=== PATIENT | male | born 1955 | race Hispanic/Latino ===

== ENCOUNTER 2017-04-26 13:26 | Emergency (ER) | payer OTHER | END 2017-04-26 14:09 | disposition home or self-care (01) | LOC: ERS 13:26 | DX: B37.42 Candidal balanitis (principal) | CPT/HCPCS: 99282 ==

== ENCOUNTER 2017-07-08 07:10 | Outpatient (CLI) | payer OTHER | END 2017-07-08 07:11 | disposition home or self-care (01) | LOC: BICULT 07:10 | PROVIDERS: ATTEND Urology | DX: N20.0 Calculus of kidney (principal); N28.1 Cyst of kidney, acquired; R31.29 Other microscopic hematuria; Z51.89 Encounter for other specified aftercare; N40.0 Benign prostatic hyperplasia without lower urinary tract symptoms | CPT/HCPCS: 36415; 74000; 76770; 80048; 81001; 87086; 88112; G0103 ==

== ENCOUNTER 2017-07-19 09:59 | Emergency (ER) | payer OTHER ==
--- NOTE | 2017-07-19 11:19 | RAD ---
PORTABLE CHEST 1 VIEW: Date: 07/19/17 Time: 1057 hours HISTORY: Cough. FINDINGS: The heart size is normal. The aorta is tortuous. The lungs are well expanded without focal areas of c onsolidation, pneumothorax, or pleural effusions. There is evidence of old granulomatous disease. IMPRESSION: No radiographic evidence of acute cardiopulmonary process. POS: C
[2017-07-19] MEDS ORDERED: cefTRIAXone\\ROCEPHIN 500 MG VIAL ONE (11:31)
[2017-07-19] MEDS ORDERED: Dexamethasone 10 MG/ML VIAL ONE (11:31)
[2017-07-19] MEDS ORDERED: Lidocaine 1% PF 5 ML VIAL ONE (11:31)
== END 2017-07-19 11:50 | disposition home or self-care (01) ==
LOC: ERS 09:59
DX: J20.9 Acute bronchitis, unspecified (principal); J11.1 Influenza due to unidentified influenza virus with other respiratory manifestations
CPT/HCPCS: 71010; 96372; J0696; J1100; J2001

== ENCOUNTER 2017-07-27 10:32 | Outpatient (CLI) | payer OTHER ==
[2017-07-27 11:11] LABS: Anion Gap 11 mmol/L (10-20); BUN (Urea Nitrogen) 11 mg/dL (8.4-25.7); Calc. Creatinine Clearance 0 mL/min (70-130); Calcium 9.3 mg/dL (7.8-10.44); Carbon Dioxide 26 mmol/L (23-31); Chloride 107 mmol/L (98-107); Estimated GFR-MDRD 90; Glucose 118 mg/dL (80-115); Potassium 4.2 mmol/L (3.5-5.1); Sodium 140 mmol/L (136-145)
[2017-07-27] MEDS ORDERED: Iopamidol 370 76% 100 ML VIAL ONE (11:54)
--- NOTE | 2017-07-27 14:21 | CT ---
CT ABDOMEN AND PELVIS WITH AND WITHOUT CONTRAST: HISTORY: N40.0 (BPH), R31.2 (microhematuria), N28.0, and G89.29. FINDINGS: There are calcified granuloma in the left lung base. Mild atelectatic changes in the lung bases. No pericardial effusion. On the noncontrast evaluation, there is a punctate calculus at the superior pole right kidney. No ob structive uropathy. No calculus is in the ureters. The prostate is markedly enlarged. There is a cyst within the left kidney, similar. Ysl-[id number]-dt-characterize hypodensities of both kid neys are present and similar. On the delayed phase of contrast, there are no filling defects within the renal calyces or ureters. There is indentation of the posterior wall of the urinary bladder, due to the prostate. There is moderate diverticular disease of the sigmoid colon without active inflammation. No retroper itoneal adenopathy. Mild facet arthropathy lower lumbar spine. IMPRESSION: 1. Punctate, nonobstructive right superior renal calculus. 2. No abnormal filling defect within the renal collecting systems, the ureters, or the urinary bladd er. 3. Marked prostate hyperplasia creating an impression on the posterior wall of the urinary bladder, which could be the source of the patient's microhematuria. 4. No abnormal renal enhancing mass. POS: VINH
== END 2017-07-27 10:33 | disposition home or self-care (01) ==
LOC: CT 10:32
PROVIDERS: ATTEND Urology
DX: N40.0 Benign prostatic hyperplasia without lower urinary tract symptoms (principal); R31.29 Other microscopic hematuria; N20.0 Calculus of kidney; G89.29 Other chronic pain
CPT/HCPCS: 74178; 80048

== ENCOUNTER 2017-10-10 10:31 | Emergency (ER) | payer OTHER ==
--- NOTE | 2017-10-10 11:38 | RAD ---
THREE VIEW SOF THE RIGHT ANKLE: COMPARISON: None. HISTORY: Right ankle pain. FINDINGS: Three views of the right ankle show no evidence of acute fracture or dislocation. No degenerative ch anges are seen in the ankle. There are mild degenerative changes in the mid foot. IMPRESSION: No evidence of acute osseous abnormality. POS: VINH
== END 2017-10-10 12:55 | disposition home or self-care (01) ==
LOC: ERS 10:31
DX: M72.2 Plantar fascial fibromatosis (principal); N40.0 Benign prostatic hyperplasia without lower urinary tract symptoms; Z79.899 Other long term (current) drug therapy

== ENCOUNTER 2017-10-29 13:06 | Emergency (ER) | payer OTHER ==
[2017-10-29 13:29] LABS: Bilirubin Negative (Negative); Blood, Urine Large (Negative); Clarity TURBID (Clear); Glucose, Urine (Dipstick) Negative (Negative); Leukocyte Large (Negative); Nitrite Positive (Negative); Protein, Urine (Dipstick) 100 mg/dL (Neg-Trace); Specific Gravity, Urine 1.019 (1.002-1.036); Urobilinogen 0.2 mg/dL (0.2-1.0)
[2017-10-29 13:30] LABS: Bacteria/HPF 3+ HPF (None Seen); Hyaline Casts/LPF 0-3 HYALINE CAST LPF (0-3 Hyaline); Pathc Cast-AUWi Flag 0.39 (0-2.49); RBC/HPF GREATER THAN 50-TNTC HPF (0-3); Squamous Epithelial 0-3 HPF (0-3)
== END 2017-10-29 13:40 | disposition home or self-care (01) ==
LOC: ERS 13:06
DX: N40.1 Benign prostatic hyperplasia with lower urinary tract symptoms; N30.01 Acute cystitis with hematuria; Z79.899 Other long term (current) drug therapy
CPT/HCPCS: 81003; 81015; 87077; 87086; 87186; 99283

== ENCOUNTER 2017-11-07 20:21 | Emergency (ER) | payer OTHER ==
[2017-11-07 21:38] LABS: Bilirubin Small (Negative); Blood, Urine Large (Negative); Clarity CLOUDY (Clear); Glucose, Urine (Dipstick) Negative (Negative); Leukocyte Large (Negative); Nitrite Positive (Negative); Protein, Urine (Dipstick) 30 mg/dL (Neg-Trace); Specific Gravity, Urine 1.021 (1.002-1.036)
[2017-11-07 21:39] LABS: Bacteria/HPF None Seen HPF (None Seen); Hyaline Casts/LPF 0-3 HYALINE CAST LPF (0-3 Hyaline); Pathc Cast-AUWi Flag 0.29 (0-2.49); RBC/HPF GREATER THAN 50-TNTC HPF (0-3); Squamous Epithelial None Seen HPF (0-3)
[2017-11-07 21:41] LABS: Yeast-AUWi Flag 2138.6 (0-25.0)
[2017-11-07 21:44] LABS: Sperm/HPF 1+ HPF (None Seen); Yeast-All Forms None Seen HPF (None Seen)
[2017-11-08] MEDS ORDERED: Ciprofloxacin 500 MG TAB ONE (00:54)
[2017-11-08] MEDS ORDERED: traMADol HCl 50 MG TAB ONE (01:27)
--- NOTE | 2017-11-08 09:07 | CT ---
PRELIMINARY REPORT/[facility]/EMERGENTY AFTER-HOURS PROCEDURE CT Abdomen and Pelvis Without Intravenous Contrast CLINICAL HISTORY: 62 years old, male; Pain; Abdominal pain; Generalized; Patient HX: R/O stone TECHNIQUE: Axial computed tomography images of the abdomen and pelvis without intravenous contrast. Coronal refo rmatted images were created and reviewed. COMPARISON: No relevant prior studies available. FINDINGS: The lung bases are clear. 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 Small adjacent cortical calcification. No definite intrarenal calculus. No hydro nephrosis. No hydroureter or visible ureteral calculus. Left kidney: Probable 17 mm cyst in the upper left kidney No intrarenal calculus, or hydronephrosis. No hydroureter or visible ureteral calculus. No definite gallbladder abnormality by CT. Ultrasound could be more sensitive for detecting gallstone s, if clinically needed. No biliary tree dilation. Unremarkable appearance of the liver, spleen, adrenal glands, and pancreas. No free air, ascites, or bowel distention. No evidence for abdominal aortic aneurysm. No retroperitoneal adenopathy. CT pelvis: Urinary bladder appears essentially unremarkable by CT. The appendix is visualized and appears normal. There are no CT findings to strongly suggest diverticulitis. Prominent prostate enlargement with transverse diameter of 6 cm. Correlation with PSA level may be us eful to help exclude malignancy IMPRESSION: No renal or ureteral calculus. No hydronephrosis or hydroureter. Normal appendix. No diverticulitis. No free air or bowel distention. Other findings discussed above. Thank you for allowing us to participate in the care of your patient. Dictated and Authenticated by: Cameron Munoz MD 11/08/2017 1:07 AM Central Time ([place] & [place]) FINAL REPORT EMERGENCY AFTER HOURS CT ABDOMEN AND PELVIS PERFORMED WITHOUT CONTRAST ENHANCEMENT: Date: 11/07/17 HISTORY: UTI. Abdominal pain and bloating. [place]-tinged urine. FINDINGS: The lung bases show some subsegmental atelectatic change. The liver, spleen, pancreas, and gallbladder regions appear unremarkable given the limitations of a n oncontrast study. Right and left adrenal glands are normal in appearance. Right and left kidneys are normal in size. An approximately 17.0 mm hypodensity involving the left kidney is statistically most likely a cyst. The re is an area of what appears to be some cortical scarring and a calcification which appears to be mo re in the cortex rather than a luis daniel associated with this, although it could represent an area where there is scarring related to deformity to a luis daniel. There is no obstruction of either kidney and there are no ureteral calculi. There is no significant periaortic or mesenteric adenopathy. The appendix is more retrocecal in locat ion and normal in size and appearance. CT of pelvis was performed without contrast enhancement. The prostate is enlarged with prostatic calc ifications. No significant adenopathy or mass. No evidence for diverticulitis. IMPRESSION: 1. Probable left renal cyst measuring 17.0 mm. 2. Cortical scarring associated with a small calcification upper pole of right kidney. No ureteral c alculi. 3. Normal appendix. 4. Enlarged prostate. This report is in agreement with the preliminary report issued by [facility]. POS: NGA
== END 2017-11-08 01:40 | disposition home or self-care (01) ==
LOC: ERS 20:21
DX: N41.9 Inflammatory disease of prostate, unspecified (principal); N40.0 Benign prostatic hyperplasia without lower urinary tract symptoms; Z79.899 Other long term (current) drug therapy
CPT/HCPCS: 74176; 81003; 81015; 87086

== ENCOUNTER 2018-03-14 16:43 | Inpatient (IN) | payer OTHER ==
[~2018-03-14 16:43] MED LIST: Heparin 1,000 UNITS/ML VIAL ONE
[2018-03-14] MEDS ORDERED: Piperacillin/Tazobactam 4.5 GM VIAL ONE (17:13)
[2018-03-14] MEDS ORDERED: MEROPENEM 1 GM/50 ML 1 GM in Premix Bag 1 BAG IVPB SCH (17:15)
[2018-03-14 17:19] LABS: #Eosinphils 0.1 thou/uL (0.0-0.7); #Lymphocytes 1.3 thou/uL (1.20-3.40); #Monocytes 0.8 thou/uL (0.11-0.59); #Neutrophils 6.2 thou/uL (1.40-6.50); %Basophils 0.4 % (0.0-1.0); %Eosinophils 0.8 % (0.0-10.0); %Lymphocytes 15.2 % (21.0-51.0); %Neutrophils 73.6 % (42.0-75.0); Hemoglobin 12.8 g/dL (14.0-18.0); Mean Corpuscular HGB CONC 35.1 g/dL (32.0-36.0); Mean Corpuscular Hemoglobin 34.2 pg (27.0-31.0); Mean Corpuscular Volume 97.5 fL (78.0-98.0); Mean Platelet Volume 7.6 fL (7.4-10.4); Platelet Count 148 thou/uL (130-400); RBC Distribution Width 11.7 % (11.5-14.5); Red Blood Cell (RBC) Count 3.75 mill/uL (4.70-6.10); White Blood Cell (WBC) Count 8.4 thou/uL (4.8-10.8)
[2018-03-14 17:38] LABS: Bilirubin Small (Negative); Blood, Urine Small (Negative); Clarity CLOUDY (Clear); Glucose, Urine (Dipstick) Negative (Negative); Leukocyte Moderate (Negative); Nitrite Negative (Negative); Protein, Urine (Dipstick) 100 mg/dL (Neg-Trace); Specific Gravity, Urine 1.042 (1.002-1.036)
[2018-03-14 17:40] LABS: ALT (SGPT) 16 U/L (8-55); AST (SGOT) 15 U/L (5-34); Albumin 3.7 g/dL (3.4-4.8); Alkaline Phosphatase 66 U/L (40-150); Anion Gap 10 mmol/L (10-20); BUN (Urea Nitrogen) 12 mg/dL (8.4-25.7); Bilirubin, Total 0.8 mg/dL (0.2-1.2); Calc. Creatinine Clearance 0 mL/min (70-130); Calcium 8.5 mg/dL (7.8-10.44); Carbon Dioxide 24 mmol/L (23-31); Chloride 108 mmol/L (98-107); Estimated GFR-MDRD 75; Globulin 2.5 g/dL (2.4-3.5); Glucose 150 mg/dL (80-115); Potassium 3.3 mmol/L (3.5-5.1); Protein, Total 6.2 g/dL (5.8-8.1); Sodium 139 mmol/L (136-145)
[2018-03-14 17:41] LABS: Bacteria/HPF None Seen HPF (None Seen); Hyaline Casts/LPF 4-6 HYALINE CAST LPF (0-3 Hyaline); Pathc Cast-AUWi Flag 1.01 (0-2.49); Squamous Epithelial 0-3 HPF (0-3); Yeast-AUWi Flag 14.8 (0-25.0)
[2018-03-14] MEDS ORDERED: Ibuprofen 800 MG TAB ONE (18:37)
[2018-03-14 18:41] LABS: CK (CPK) 180 U/L (30-200); Lipase 29 U/L (8-78)
[2018-03-14 18:45] LABS: CKMB 1.2 ng/mL (0-6.6); Troponin I Less than 0.010 ng/mL (< 0.028)
[2018-03-14] MEDS ORDERED: Enoxaparin Sodium 40 MG/0.4 ML SYRINGE SC SCH (19:45)
--- NOTE | 2018-03-14 19:47 | PDOC.FPRHP ---
- History of Present Illness Chief Complaint: UTI, failed outpatient History of Present Illness: Mr. Mejia presents to the ED today from clinic after multiple failed antibiotic treatments for UTI. He has been treated 3 times in the past few months without success. For the past 3 days he has had pain with urination, and they past 24 hours has been experiencing fevers/chills. He denies blood with urination, abdominal/back pain, SOB, Chest pain, or N/V/D. ED Course: 2 L bolus, blood cultures, merepenem, zosyn, UA, CMP, lipase - Allergies/Adverse Reactions Allergies Allergy/AdvReac Type Severity Reaction Status Date / Time No Known Allergies Allergy Verified 03/14/18 20:26 - Home Medications Medication Instructions Recorded Confirmed Type Finasteride 5 mg PO DAILY 03/14/18 03/14/18 History Lisinopril 10 mg PO DAILY 03/14/18 03/14/18 History Tamsulosin HCl 0.4 mg PO DAILY 03/14/18 03/14/18 History - History PMHx:BPH, HTN PSHx: none FHx:none Social:no TAD - Review of Systems General: reports: fever/chills. denies: weight/appetite/sleep changes Eyes: denies: eye pain, vision changes ENT: denies: nasal congestion, rhinorrhea Respiratory: denies: cough, congestion, shortness of breath Cardiovascular: denies: chest pain, palpitation Gastrointestinal: denies: nausea, vomiting, diarrhea, abdominal pain Genitourinary: reports: dysuria. denies: incontinence, polyuria, discharge Skin: denies: rashes, lesions Musculoskeletal: denies: pain, tenderness Neurological: reports: other (headache). denies: numbness, syncope - Vital signs BP: [99/55] HR: [56] RR: [26] Tmax: [101.3] Pox: [99]% on [RA] Wt: [99kg] - Physical Exam Constitutional: other (tremulous) HEENT: normocephalic and atraumatic, grossly normal vision, grossly normal hearing Neck: supple, trachea midline Chest: no-tender to palpation Heart: RRR, normal S1/S2, pulses present Lungs: CTAB, no respiratory distress, good air movement, no rales/rhonchi Abdomen: soft, non-tender, bowel sounds present Musculoskeletal: normal structure, ROM grossly normal Neurological: no focal deficit, CN II-XII intact Skin: no rash/lesions, other (cap refill >3 secs) Heme/Lymphatic: no unusual bruising or bleeding, no purpura, no petechia FMR H&P: Results - Labs Result Diagrams: 03/14/18 17:04 03/14/18 17:04 Lab results: WBC 8.4 thou/uL (4.8-10.8) 03/14/18 17:04 Hgb 12.8 g/dL (14.0-18.0) L 03/14/18 17:04 Hct 36.5 % (42.0-52.0) L 03/14/18 17:04 MCV 97.5 fL (78.0-98.0) 03/14/18 17:04 Plt Count 148 thou/uL (130-400) 03/14/18 17:04 Neutrophils % 73.6 % (42.0-75.0) 03/14/18 17:04 Sodium 139 mmol/L (136-145) 03/14/18 17:04 Potassium 3.3 mmol/L (3.5-5.1) L 03/14/18 17:04 Chloride 108 mmol/L (98-107) H 03/14/18 17:04 Carbon Dioxide 24 mmol/L (23-31) 03/14/18 17:04 BUN 12 mg/dL (8.4-25.7) 03/14/18 17:04 Creatinine 1.01 mg/dL (0.6-1.3) 03/14/18 17:04 Glucose 150 mg/dL (80-115) H 03/14/18 17:04 Lactic Acid 1.4 mmol/L (0.5-2.2) 03/14/18 17:04 Calcium 8.5 mg/dL (7.8-10.44) 03/14/18 17:04 Total Bilirubin 0.8 mg/dL (0.2-1.2) 03/14/18 17:04 AST 15 U/L (5-34) 03/14/18 17:04 ALT 16 U/L (8-55) 03/14/18 17:04 Alkaline Phosphatase 66 U/L (40-150) 03/14/18 17:04 Creatine Kinase 180 U/L (30-200) 03/14/18 17:50 CK-MB (CK-2) 1.2 ng/mL (0-6.6) 03/14/18 17:50 B-Natriuretic Peptide 133.4 pg/mL (0-100) H 03/14/18 17:51 Serum Total Protein 6.2 g/dL (5.8-8.1) 03/14/18 17:04 Albumin 3.7 g/dL (3.4-4.8) 03/14/18 17:04 Lipase 29 U/L (8-78) 03/14/18 17:50 Urine Ketones Trace mg/dL (Negative) H 03/14/18 17:27 Urine Blood Small (Negative) H 03/14/18 17:27 Urine Nitrite Negative (Negative) 03/14/18 17:27 Ur Leukocyte Esterase Moderate (Negative) H 03/14/18 17:27 Urine RBC 4-6 HPF (0-3) 03/14/18 17:27 Urine WBC Greater Than 50-TNTC HPF (0-3) H 03/14/18 17:27 Ur Squamous Epith Cells 0-3 HPF (0-3) 03/14/18 17:27 Urine Bacteria None Seen HPF (None Seen) 03/14/18 17:27 FMR H&P: A/P - Problem List (1) Sepsis secondary to UTI Current Visit: Yes Status: Acute Code(s): A41.9 - SEPSIS, UNSPECIFIED ORGANISM; N39.0 - URINARY TRACT INFECTION, SITE NOT SPECIFIED (2) BPH (benign prostatic hyperplasia) Current Visit: Yes Status: Acute Code(s): N40.0 - BENIGN PROSTATIC HYPERPLASIA WITHOUT LOWER URINRY TRACT SYMP (3) HTN (hypertension) Current Visit: Yes Status: Acute Code(s): I10 - ESSENTIAL (PRIMARY) HYPERTENSION - Plan 1. Sepsis secondary to MDR UTI - Additional L fluid bolus, NS 120/hr maintenance - continue IV zosyn/merepenem - Strict IO - monitor in IMCU - repeat CBC, CMP in AM 2. BPH - continue home medications - await recommendations from Dr. Bueno 3. HTN - hold home medications FMR H&P: Upper Level - Pertinent history 62 yo male here for failed outpatient treatment of UTI. Pt has been seen by Dr. Bueno for BPH. Plans were to have some prostate procedure Apr 06. The last couple months he has had 3-4 UTIs all of which improved with outpatient abx. However, the most recent episode started a couple days ago with dysuria. Assoc chills and MAIER today. Denies N/V, penile discharge, CP, back pain. Initial temperature of 101.3. In the ED patient received 1L NS bolus x2 for low BP, meropenem, zosyn, motrin - Pertinent findings GEN: pt appears acutely ill, shaking CARD: RRR PULM: CTAB ABD: BSx4, nontender, abd distended : uncircumcised, foreskin retractable, nonerythematous, nontender; testicles descended b/l and nontender 91/56 HR: 60 Temp: 101.3 RR: 21 O2Sat: 100% on RA UA: ketones: trace blood: small nitrite: negative bilirubin: small LE: moderate WBC: >50-TNTC Squam Epith: 0-3 Bacteria: none seen hyaline casts: 4-6 Lactic acid: 1.4 Lipase: 29 - Plan Date/Time: 03/14/181943 IGagan DO, have evaluated this patient and agree with findings/plan as outlined by rn intern resident. Pertinent changes/additions are listed here. 62 yo male here for: sepsis 2/2 MDR UTI, failed outpatient treatment sepsis by fever and mild tachypnea; BP has been acceptable according to recorded measurements zosyn and meropenem started in the ER, will plan to continue blood and urine Cx Dr. Bueno is aware and has seen patient Strict I/Os s/p 1L NS bolus x 2; will continue with maintenance fluids Headache motrin and tylenol Hypertension will hold lisinopril until BP becomes elevated BPH tamsulosin and finasteride Hypokalemia recheck in AM and replace if indicated
[2018-03-14] MEDS: Acetaminophen 325 MG TAB PO PRN (19:53)
[2018-03-14] MEDS: Sodium Chloride 0.9% 1,000 ML IV SCH (19:55)
[2018-03-14 20:08] VITALS: BMI 41.3
[2018-03-14] MEDS: Docusate 100 MG CAP PO SCH (21:08)
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
[2018-03-15] MEDS ORDERED: Piperacillin/Tazobactam 3.375 GM in Sodium Chloride 0.9% 100 ML IVPB SCH (00:30)
[2018-03-15] MEDS: Sodium Chloride 0.9% 1,000 ML IV SCH ×2 (00:43→02:52)
--- NOTE | 2018-03-15 01:00 | PDOC.EVN ---
Event Note - Event Note Event Note: Patient seen and examined. Case discussed with Dr. Zambrano on 03/14/18. Briefly this is a 62 yo BARCLAY with h/o HTN, BPH and recurrent UTIs oresented from his urologist's office today with c/o dysuria x 4-5 days; (+) fever and chills. Denies any N/V/D or sbdominal pain. Mild back pain mostly when he has the chills. PMH/PSH/Meds/All reviewed and agree with resident's documentation. T100.2 P73 BP 95/46 RR20 O2=99% Exam repeated by me and agree with resident' s findings. Labs: WBC=8.4, H/H=12.8/36.5, Kol=571, Ny=958. K=3.3, BUN/Cr=12/1.01 , Lactic acid=1.4. A/P: 1) Sepsis secondary to UTI- Past cultures with E. coli resistant to multiple drugs. Continue Meropenem and Zosyn started in ER. Urine culture pending. Blood cultures pending. 2) HTN- hold lisinopril for now
[2018-03-15] MEDS: MEROPENEM 1 GM/50 ML 1 GM in Premix Bag 1 BAG IVPB SCH ×3 (02:49→18:13)
[2018-03-15 04:28] LABS: #Eosinphils 0.1 thou/uL (0.0-0.7); #Lymphocytes 1.5 thou/uL (1.20-3.40); #Neutrophils 5.4 thou/uL (1.40-6.50); %Basophils 0.3 % (0.0-1.0); %Eosinophils 1.8 % (0.0-10.0); %Monocytes 12.5 % (0.0-10.0); %Neutrophils 67.4 % (42.0-75.0); Hemoglobin 12.3 g/dL (14.0-18.0); Mean Corpuscular HGB CONC 34.4 g/dL (32.0-36.0); Mean Corpuscular Hemoglobin 34.1 pg (27.0-31.0); Mean Platelet Volume 7.9 fL (7.4-10.4); Platelet Count 135 thou/uL (130-400); RBC Distribution Width 11.6 % (11.5-14.5); Red Blood Cell (RBC) Count 3.62 mill/uL (4.70-6.10)
[2018-03-15 04:43] LABS: ALT (SGPT) 20 U/L (8-55); AST (SGOT) 21 U/L (5-34); Albumin 3.3 g/dL (3.4-4.8); Alkaline Phosphatase 59 U/L (40-150); Anion Gap 9 mmol/L (10-20); BUN (Urea Nitrogen) 10 mg/dL (8.4-25.7); Bilirubin, Total 0.7 mg/dL (0.2-1.2); Calc. Creatinine Clearance 137 mL/min (70-130); Calcium 7.7 mg/dL (7.8-10.44); Carbon Dioxide 21 mmol/L (23-31); Chloride 111 mmol/L (98-107); Estimated GFR-MDRD Greater than 90; Globulin 2.4 g/dL (2.4-3.5); Glucose 114 mg/dL (80-115); Potassium 3.7 mmol/L (3.5-5.1); Protein, Total 5.7 g/dL (5.8-8.1); Sodium 137 mmol/L (136-145)
[2018-03-15] MEDS: Piperacillin/Tazobactam 3.375 GM in Sodium Chloride 0.9% 100 ML IVPB SCH ×3 (05:40→17:05)
[2018-03-15] MEDS: Acetaminophen 325 MG TAB PO PRN ×3 (05:47→17:52)
--- NOTE | 2018-03-15 06:03 | PDOC.FM ---
- Subjective Subjective: Patient HR fell to the 40-50s last night. Dr Zambrano examined patient and he was asymptomatic. He was sleeping at the time and was easily arousable. Patient has no complaints or concerns this morning. He states he is feeling much better and felt a little feverish last night. He said he no longer feels burning with urination. He denies SOB, chest pain, abdominal pain, NVD. - Objective MAR Reviewed: Yes Vital Signs & Weight: Vital Signs (12 hours) Temp Pulse Resp BP Pulse Ox 03/15/18 04:00 98.6 F 47 L 16 103/47 L 100 03/15/18 00:00 98.2 F 55 L 18 93/54 L 100 03/14/18 20:10 100.2 F H 73 20 95/46 L 99 03/14/18 20:00 100.2 F H 73 20 99 03/14/18 19:40 99.0 F 74 20 119/54 L 99 Weight Weight 102.512 kg I&O: 03/13/18 03/14/18 03/15/18 06:59 06:59 06:59 Intake Total 360 Output Total 320 Balance 40 Result Diagrams: 03/15/18 03:51 03/15/18 03:51 <Rosi Keller - Last Filed: 03/15/18 09:38> - Objective Vital Signs & Weight: Vital Signs (12 hours) Temp Pulse Resp BP Pulse Ox 03/15/18 08:00 98.0 F 50 L 17 03/15/18 07:28 98.0 F 50 L 17 98/55 L 100 03/15/18 04:00 98.6 F 47 L 16 103/47 L 100 Weight Weight 102.512 kg I&O: 03/14/18 03/15/18 03/16/18 06:59 06:59 06:59 Intake Total 2640 Output Total 1350 Balance 1290 Result Diagrams: 03/15/18 03:51 03/15/18 03:51 <Abdirashid Tiwari - Last Filed: 03/15/18 12:09> Phys Exam - Physical Examination Constitutional: NAD resting, snoring loudly HEENT: PERRLA, moist MMs, sclera anicteric Neck: no JVD, supple, full ROM Respiratory: no wheezing, no rales, no rhonchi, clear to auscultation bilateral Cardiovascular: RRR, no significant murmur, no rub Gastrointestinal: soft, non-tender, no distention, positive bowel sounds Musculoskeletal: pulses present Neurological: non-focal, moves all 4 limbs Psychiatric: A&O x 3 Skin: no rash, normal turgor <Rosi Keller - Last Filed: 03/15/18 09:38> Dx/Plan (1) Sepsis secondary to UTI Code(s): A41.9 - SEPSIS, UNSPECIFIED ORGANISM; N39.0 - URINARY TRACT INFECTION, SITE NOT SPECIFIED Status: Acute (2) Bradycardia Code(s): R00.1 - BRADYCARDIA, UNSPECIFIED Status: Acute (3) Headache Code(s): R51 - HEADACHE Status: Acute (4) Hypokalemia Code(s): E87.6 - HYPOKALEMIA Status: Acute (5) HTN (hypertension) Code(s): I10 - ESSENTIAL (PRIMARY) HYPERTENSION Status: Acute (6) BPH (benign prostatic hyperplasia) Code(s): N40.0 - BENIGN PROSTATIC HYPERPLASIA WITHOUT LOWER URINRY TRACT SYMP Status: Acute - Plan Plan: This is a 62 yo M here for multi-drug resistant UTI. We will continue to tx with IV antibiotics. Sepsis secondary to MDR UTI - Additional L fluid bolus given, switched to LR 120/hr maintenance - continue IV zosyn/merepenem; blood and urine cx pending - Strict IO: output 320 today - Transfer to medical floor - Will formally consult urology. Dr. Bueno is following. 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 HR 47-74 - Will offer CPAP at night for this issue; recommend outpatient Sleep study for diagnosis BPH - continue home medications - await recommendations from Dr. Bueno HTN - hold home medications due to lower blood pressures Hypokalemia - Resolved. K today 3.7. Will monitor with BMP qD DISPO: likely stay 1-2 days. Will f/u with specialists to coordinate care. CODE: FULL DVT prophylaxis: lovenox Case discussed with Dr. Tiwari <Rosi Keller - Last Filed: 03/15/18 09:38> Attending Addendum - Attending Addendum Date/Time: 03/15/18 1207 I personally evaluated the patient and discussed the management with Dr. Keller. I agree with the History, Examination, Assessment and Plan documented above with any addition or exceptions noted below. Patient doing well this morning. Continues on abx therapy for UTI and likely prostatitis and Urology on board. ID has been consulted for recommendations regarding remote computer terminal operator abx therapy. Currently on Meropenem and Zosyn, should be able to d/c Zosyn as sensitivities show adequate to [place]. Change fluids to LR due to developing hyperchloremia. No evidence of severe sepsis or septic shock and therefore will transfer to medical floor and out of IMCU. <Abdirashid Tiwari - Last Filed: 03/15/18 12:09>
--- NOTE | 2018-03-15 08:23 | PRG ---
DATE OF SERVICE: 03/15/2018 SUBJECTIVE: The patient's family at bedside, states that he is feeling better, denies further chills. Dysuria has improved. Denies obstructive urinary symptoms. PHYSICAL EXAMINATION: VITAL SIGNS: T-max of 100.2, T-current 98, 57, 100%, 98/55. I's and O's 2640 in, 1350 out. ABDOMEN: Soft, nontender, nondistended. No CVA tenderness. No suprapubic tenderness. LABORATORY DATA: White count of 8, hemoglobin 12, platelet 135. Resolution of bandemia. Renal function stable at 0.8, lactic acid within normal limits. Blood culture negative thus far. History of Escherichia coli, multidrug resistant. IMPRESSION AND PLAN: 1. Mr. Mejia is a 62-year-old male, with history of BPH. 2. History of recurrent urinary tract infection, E. coli multidrug resistant, suboptimally treated as an outpatient. 2. Presents with early sepsis. The patient is clinically doing better with fluids, appropriate antibiotic regimen. He still remains hypotensive. An episode of bradycardia last night, asymptomatic. Continue close monitoring. Infectious Disease consult pending. Will require PICC line for IV antibiotic therapy. I will need to defer his transurethral resection of prostate as he presents with acute cystitis/ prostatitis. When patient is afebrile>24hrs , has been appropriately provided regimen as an outpatient can be discharged. Anticipate he will be in house for minimum of another 24-48 hours. [facility]
[2018-03-15] MEDS: Finasteride 5 MG TAB PO SCH (08:28)
[2018-03-15] MEDS: Tamsulosin HCl 0.4 MG CAP PO SCH (08:28)
[2018-03-15] MEDS: Docusate 100 MG CAP PO SCH ×2 (08:28→20:15)
[2018-03-15] MEDS: Lactated Ringer's 1,000 ML IV SCH ×2 (12:27→18:19)
--- NOTE | 2018-03-15 12:34 | CON ---
DATE OF CONSULTATION: 03/15/2018 HISTORY OF PRESENT ILLNESS: A 62-year-old patient who has a history of benign prostatic hypertrophy, hypertension and previous urinary infections who now developed worsening dysuria associated with sup rapubic pain over the past 5 days before admission. He had some fever and chills associated with it. The patient currently is awake and alert, appears in no distress, no headaches, visual symptoms, sore throat, odynophagia, dysphagia, no cough or sputum production or chest pain, no abdominal pain. The dysuria has resolved after antimicrobials were started. No joint symptoms. No neurological symptom s. PAST MEDICAL HISTORY: BPH, hypertension. ALLERGIES: None. MEDICATIONS: Finasteride, lisinopril, tamsulosin. CURRENT MEDICATIONS: Colace, Proscar, meropenem. SOCIAL HISTORY: No smoking. , lives in the area, used to work in construction. FAMILY HISTORY: Noncontributory. PHYSICAL EXAMINATION: VITAL SIGNS: T-max 100.2, currently 98. Other vital signs are not remarkable. SKIN: Normal. Peripheral IV access. No Valero catheter. No lymphadenopathy. HEENT: Ocular movements conjugate. Oral cavity normal. NECK: Supple, no jugular vein distention. LUNGS: Symmetric clear breath sounds. HEART: S1, S2, regular rate. No S3 or S4. ABDOMEN: Soft, not distended or tender. No ascites. No bladder distention. EXTREMITIES: No joint inflammatory activity. NEUROLOGIC: Nonfocal. LABORATORY DATA: White cell count 8.4, hemoglobin 12.8, platelets 148, 72% neutrophils. Creatinine 0.8. Liver profile normal. Albumin 3.3. Microbiology with negative blood cultures thus far. Urine culture with likely E. coli, which appears to be an ESBL organism. This has been present since Apri l. He has had an abdomen and pelvis CT from 11/07/2017 which showed a kidney cyst, but no hydronephrosis , no significant nephrolithiasis. There is some cortical scarring, right kidney, enlarged prostate g land. ASSESSMENT: Benign prostatic hypertrophy with hypertension and ESBL Escherichia coli associated cyst itis, likely upper tract infection as well. He will need PICC line placement and treatment with Invanz in the Oncology Unit for at least 2 weeks. Follow up urine cultures. Continue treatment for BPH. Probably will recommend extending to 4 weeks since there is a risk of treatment failure in 2 weeks.
[2018-03-15] MEDS ORDERED: Meropenem 1 GM in Sodium Chloride 0.9% 100 ML IVPB SCH (15:19)
--- NOTE | 2018-03-15 15:54 | SPC ---
EXAM: ULTRASOUND GUIDED LEFT UPPER EXTREMITY PICC LINE PLACEMENT. 03/15/18 HISTORY: Recurrent urinary tract infection. COMPARISON: None. FINDINGS: Technically successful ultrasound guided left upper extremity PICC line placement. A single lumen cat heter terminates in the right atrium. Trim length is 47 cm. Consent obtained for ultrasound guided left upper extremity PICC line placement. Left arm was prepped and draped in the sterile fashion. A 1% lidocaine buffered with sodium bicarbonate used for local an esthesia. Under ultrasound guidance, micropuncture needle was used to cannulate the basilic vein. A 0 .018 guidewire was advanced to the level of the superior vena cava. A wire was advanced in the right atrium. Tract was dilated. A single lumen flushed and aspirated without difficulty. EXPOSURE: 0.4 minutes. 4712 mGy*cm2. IMPRESSION: Successful left upper extremity PICC line placement under ultrasound guidance. Single lumen catheter flushes and aspirates without difficulty. 47 cm trim length. POS: [facility]
[2018-03-16] MEDS: Piperacillin/Tazobactam 3.375 GM in Sodium Chloride 0.9% 100 ML IVPB SCH ×2 (01:21→05:14)
[2018-03-16] MEDS: Lactated Ringer's 1,000 ML IV SCH ×2 (01:21→12:38)
[2018-03-16] MEDS: MEROPENEM 1 GM/50 ML 1 GM in Premix Bag 1 BAG IVPB SCH ×2 (02:01→09:36)
--- NOTE | 2018-03-16 05:52 | PDOC.FM ---
- Subjective Subjective: No events overnight. Patient still complains of headache. He states the tylenol does not help his headache pain. No other complaints or concerns. He denies burning upon urination. He denies SOB, abdominal or chest pain, subjective fever , NVD. - Objective MAR Reviewed: Yes Vital Signs & Weight: Vital Signs (12 hours) Temp Pulse Resp BP Pulse Ox 03/16/18 04:12 98.6 F 60 16 146/87 H 97 03/16/18 00:00 98.5 F 60 18 119/85 97 03/15/18 20:00 99.2 F 66 18 94 L 03/15/18 19:31 99.2 F 66 18 111/67 94 L Weight Weight 102.512 kg I&O: 03/14/18 03/15/18 03/16/18 06:59 06:59 06:59 Intake Total 2640 3933 Output Total 1350 Balance 1290 3933 Result Diagrams: 03/16/18 06:41 03/16/18 06:41 <Rosi Keller - Last Filed: 03/16/18 10:03> - Objective Vital Signs & Weight: Vital Signs (12 hours) Temp Pulse Resp BP Pulse Ox 03/16/18 08:00 98.3 F 55 L 16 119/76 96 03/16/18 04:12 98.6 F 60 16 146/87 H 97 Weight Weight 102.512 kg I&O: 03/15/18 03/16/18 03/17/18 06:59 06:59 06:59 Intake Total 2640 3933 Output Total 1350 Balance 1290 3933 Result Diagrams: 03/16/18 06:41 03/16/18 06:41 <Abdirashid Tiwari - Last Filed: 03/16/18 12:55> Phys Exam - Physical Examination Constitutional: NAD HEENT: PERRLA, moist MMs, sclera anicteric Neck: supple, full ROM Respiratory: no wheezing, no rales, no rhonchi, clear to auscultation bilateral Cardiovascular: RRR, no significant murmur, no rub Gastrointestinal: soft, non-tender, no distention, positive bowel sounds Musculoskeletal: no edema, pulses present Neurological: non-focal, moves all 4 limbs Psychiatric: normal affect, A&O x 3 Skin: no rash <Rosi Keller - Last Filed: 03/16/18 10:03> Dx/Plan (1) Sepsis secondary to UTI Code(s): A41.9 - SEPSIS, UNSPECIFIED ORGANISM; N39.0 - URINARY TRACT INFECTION, SITE NOT SPECIFIED Status: Acute (2) Bradycardia Code(s): R00.1 - BRADYCARDIA, UNSPECIFIED Status: Acute (3) Headache Code(s): R51 - HEADACHE Status: Acute (4) Hypokalemia Code(s): E87.6 - HYPOKALEMIA Status: Acute (5) HTN (hypertension) Code(s): I10 - ESSENTIAL (PRIMARY) HYPERTENSION Status: Acute (6) BPH (benign prostatic hyperplasia) Code(s): N40.0 - BENIGN PROSTATIC HYPERPLASIA WITHOUT LOWER URINRY TRACT SYMP Status: Acute - Plan Plan: This is a 62 yo M here for multi-drug resistant UTI. Plan is to discharge today with PICC line for abx infusion over the next 4 weeks. Sepsis secondary to MDR UTI - Additional L fluid bolus given, switched to LR 120/hr maintenance - continue IV zosyn/merepenem; blood cx pending. Urine cx positive for gram neg rods. Pending sensitivities. - Strict IO: output 1350 over last 24hrs - Transfer to medical floor - Will formally consult urology. Dr. Bueno is following. Patient will f/u and has appointment in March. - Consulted Shala to help with management: PICC line placement planned for today and tx with abx with Invanz for up to 4 weeks. 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 Overnight HR remained in the 60s - Will offer CPAP at night for this issue; pt did not do CPAP last night; recommend outpatient Sleep study for diagnosis BPH - continue home medications - await recommendations from Dr. Bueno HTN - hold home medications due to lower blood pressures Hypokalemia - Resolved. Will monitor with BMP qD DISPO: discharge today after placement of PICC line for abx CODE: FULL DVT prophylaxis: lovenox Case discussed with Dr. Tiwari <Rosi Keller - Last Filed: 03/16/18 10:03> Attending Addendum - Attending Addendum Date/Time: 03/16/18 2488 I personally evaluated the patient and discussed the management with Dr. Keller. I agree with the History, Examination, Assessment and Plan documented above with any addition or exceptions noted below. Patient doing well with the exception of mild headache. He has received PICC line. Urology has signed off and will follow up outpatient. ID recommendations for snf abx are currently in approval. If that can be approved today, he will be stable for discharge home later today. Zosyn stopped as Invanz is more than enough coverage for his bacterial infection. <Abdirashid Tiwari R - Last Filed: 03/16/18 12:55>
[2018-03-16 06:54] LABS: #Eosinphils 0.1 thou/uL (0.0-0.7); #Lymphocytes 1.6 thou/uL (1.20-3.40); #Monocytes 0.9 thou/uL (0.11-0.59); #Neutrophils 4.8 thou/uL (1.40-6.50); %Basophils 0.3 % (0.0-1.0); %Eosinophils 1.8 % (0.0-10.0); %Lymphocytes 21.4 % (21.0-51.0); %Monocytes 11.6 % (0.0-10.0); %Neutrophils 64.9 % (42.0-75.0); Hemoglobin 13.2 g/dL (14.0-18.0); Mean Corpuscular HGB CONC 35.1 g/dL (32.0-36.0); Mean Corpuscular Hemoglobin 34.2 pg (27.0-31.0); Mean Corpuscular Volume 97.4 fL (78.0-98.0); Mean Platelet Volume 8.4 fL (7.4-10.4); Platelet Count 150 thou/uL (130-400); RBC Distribution Width 11.6 % (11.5-14.5); Red Blood Cell (RBC) Count 3.86 mill/uL (4.70-6.10); White Blood Cell (WBC) Count 7.3 thou/uL (4.8-10.8)
[2018-03-16 07:19] LABS: Anion Gap 12 mmol/L (10-20); BUN (Urea Nitrogen) 5 mg/dL (8.4-25.7); Calc. Creatinine Clearance 139 mL/min (70-130); Calcium 8.5 mg/dL (7.8-10.44); Carbon Dioxide 22 mmol/L (23-31); Chloride 107 mmol/L (98-107); Estimated GFR-MDRD Greater than 90; Glucose 121 mg/dL (80-115); Potassium 3.5 mmol/L (3.5-5.1); Sodium 137 mmol/L (136-145)
--- NOTE | 2018-03-16 08:06 | PRG ---
DATE OF SERVICE: 03/16/2018 SUBJECTIVE: The patient states that his voiding parameters have improved. Minimal dysuria. Denies fever or chills. PHYSICAL EXAMINATION: VITAL SIGNS: Stable. He has been afebrile for more than 24 hours. I's and O' s are 2640 in, 1350 out. ABDOMEN: Soft, nontender, nondistended. No suprapubic tenderness appreciated. LABORATORY DATA: White count 7, hemoglobin 13, platelet 150, resolution of bandemia. Renal function stable with creatinine 0.7. This admission, urine culture pending. Gram-negative ewelina. It is most likely consistent with his prior E. coli, multidrug resistant. Blood culture negative x2. IMPRESSION AND PLAN: Mr. Mejia is a 62-year-old male with history of benign prostatic hypertrophy. 1. Current admission due to multidrug resistant Escherichia coli urinary tract infection. 2. History of early sepsis on this presentation, resolved with antibiotic therapy appropriately treated based on sensitivity. I appreciate Infectious Disease consult. Plan PICC line today. From a urologic perspective, the patient can be discharged as he has been afebrile for more than 24 hours. Please make sure, the patient is discharged with home medications including Flomax and Proscar. He has a standing appointment with me in chart 04/06 at 1: 15 p.m. As Infectious Disease is recommending 4 weeks of antibiotics, recheck a UA C&S upon return to my office. If negative, we will proceed with surgical intervention sometime in March. As such, leave the PICC line in place after 4 weeks of antibiotics finished, as I do plan to continue his IV antibiotic regimen periprocedural to continue few days after TURP. will sign off. Call if questions or concerns. CARMENCITA
[2018-03-16] MEDS ORDERED: Ibuprofen 200 MG TAB PO PRN (08:29)
[2018-03-16 08:31] VITALS: BP 119/76; TEMP 98.3
[2018-03-16] MEDS: Docusate 100 MG CAP PO SCH (09:35)
[2018-03-16] MEDS: Finasteride 5 MG TAB PO SCH (09:36)
[2018-03-16] MEDS: Tamsulosin HCl 0.4 MG CAP PO SCH (09:36)
--- NOTE | 2018-03-17 11:00 | DIS-2 ---
DATE OF ADMISSION: 03/14/2018 DATE OF DISCHARGE: 03/16/2018 RESIDENT: Rosi Keller M.D. ADMITTING ATTENDING: Dr. Hortensia Horowitz DISCHARGE ATTENDING: Abdirashid Tiwari M.D. CONSULTATIONS: Infectious Disease, Urology, Pulmonology and Case Management. PROCEDURES: Urine culture positive for gram negative rods, sensitivities pending upon discharge. PRIMARY DIAGNOSIS: Sepsis, resolved; multidrug resistant urinary tract infection. SECONDARY DIAGNOSES: BPH, headache, hypokalemia, resolved, hypertension. DISCHARGE MEDICATIONS: 1. Tamsulosin HCL 0.4 mg oral daily. 2. Lisinopril 10 mg oral daily. 3. Finasteride 5 mg oral daily. DISCONTINUED MEDICATIONS: None. HISTORY OF PRESENT ILLNESS/HOSPITAL COURSE: This is a 62-year-old male presenting with multidrug resistant Escherichia coli urinary tract infection, with fever and hypotension that was concerning for early sepsis. He has failed multiple antibiotic treatments in the outpatient setting for a UTI. Appropriate cultures were obtained including urine and blood culture. IV fluids were administered and the patient was started on IV antibiotics. He has been seen by Dr. Bueno for BPH. Plans are to have a TURP procedure in the future once the infection resolves. Dr. Last of Infectious Disease recommends PICC line placement and antibiotics for 4 weeks to treat this UTI. A PICC line was placed on 03/16/2018. He was approved for outpatient infusion of Invanz. He will follow up with Dr. Bueno for labs and progress of infection resolution. The patient had an episode of bradycardia on the night of the 03/14/18. The patient was sleeping at the time and had no symptoms. We recommend a sleep study in the outpatient setting for what is likely obstructive sleep apnea. The patient was symptomatically getting better upon discharge. DISPOSITION: Stable. DISCHARGE INSTRUCTIONS: 1. Location: Home. 2. Diet: Regular. 3. Activity: Ad onesimo. 4. Followup: Follow up for outpatient antibiotic infusion, Dr. Bueno appointment on 04/06/2018. CARMENCITA
--- NOTE | 2018-03-18 10:53 | EKG ---
Test Reason : Blood Pressure : / mmHG Vent. Rate : 057 BPM Atrial Rate : 057 BPM P-R Int : 188 ms QRS Dur : 084 ms QT Int : 406 ms P-R-T Axes : 021 003 081 degrees QTc Int : 395 ms Sinus bradycardia T wave abnormality, consider anterior ischemia Abnormal ECG Confirmed by SARA TSAI, CHIQUIS ([id number]), managing editor NORA LOWERY ([id number]) on 03/18/2018 10:52:53 AM Referred By: Confirmed By:CHIQUIS RUIZ MD
== END 2018-03-16 17:14 | disposition home or self-care (01) | DRG 872 ==
LOC: ERS 16:43 → IMCU/EMU 19:38 → T4-B 03-15 16:56
PROVIDERS: ADMIT Family Medicine; ATTEND Family Medicine
PROC: 02HV33Z Insertion of Infusion Device into Superior Vena Cava, Percutaneous Approach (ICD-10-PCS; principal; 2018-03-15)
DX: A41.51 Sepsis due to Escherichia coli [E. coli] (principal); Z68.41 Body mass index [BMI] 40.0-44.9, adult; N30.00 Acute cystitis without hematuria; N41.0 Acute prostatitis; N40.0 Benign prostatic hyperplasia without lower urinary tract symptoms; I10 Essential (primary) hypertension; E87.6 Hypokalemia; E66.01 Morbid (severe) obesity due to excess calories; R51 Headache; R00.1 Bradycardia, unspecified; G47.33 Obstructive sleep apnea (adult) (pediatric); Z16.24 Resistance to multiple antibiotics; Z79.899 Other long term (current) drug therapy
CPT/HCPCS: 36415; 36416; 36569; 80048; 80053; 80069; 81003; 81015; 82553; 83605; 83690; 83735; 83880; 84484; 85025; 87040; 87077; 87086; 87186; 93005; 96360; 96361; 96365; 96367; 96372; C1751; J1644; J1650; J1885; J2185; J2543; J7050; J7120

== ENCOUNTER 2018-03-23 10:17 | Outpatient (CLI) | payer OTHER | END 2018-03-23 10:18 | disposition home or self-care (01) | LOC: BICULT 10:17 | PROVIDERS: ATTEND Urology | DX: N40.1 Benign prostatic hyperplasia with lower urinary tract symptoms (principal); N20.0 Calculus of kidney; N28.1 Cyst of kidney, acquired | CPT/HCPCS: 74018; 76770 ==

== ENCOUNTER 2018-04-11 12:21 | Outpatient (CLI) | payer OTHER ==
[2018-04-11 13:21] LABS: Bilirubin Negative (Negative); Blood, Urine Negative (Negative); Clarity CLEAR (Clear); Glucose, Urine (Dipstick) Negative (Negative); Leukocyte Negative (Negative); Nitrite Negative (Negative); Protein, Urine (Dipstick) Negative (Neg-Trace); Specific Gravity, Urine 1.017 (1.002-1.036); Urobilinogen 0.2 mg/dL (0.2-1.0); pH, Urine 6.5 (5.0-9.0)
[2018-04-11 13:27] LABS: Bacteria/HPF None Seen HPF (None Seen); Hyaline Casts/LPF 0-3 HYALINE CAST LPF (0-3 Hyaline); RBC/HPF 0-3 HPF (0-3); Squamous Epithelial None Seen HPF (0-3); WBC/HPF None Seen HPF (0-3)
[2018-04-11 13:30] LABS: PTT 36.1 SEC (22.9-36.1)
[2018-04-11 13:47] LABS: Anion Gap 13 mmol/L (10-20); BUN (Urea Nitrogen) 11 mg/dL (8.4-25.7); Calc. Creatinine Clearance 0 mL/min (70-130); Calcium 9.1 mg/dL (7.8-10.44); Carbon Dioxide 20 mmol/L (23-31); Chloride 110 mmol/L (98-107); Estimated GFR-MDRD Greater than 90; Glucose 122 mg/dL (80-115); Hemoglobin 13.9 g/dL (14.0-18.0); Mean Corpuscular HGB CONC 34.4 g/dL (32.0-36.0); Mean Corpuscular Hemoglobin 33.4 pg (27.0-31.0); Mean Platelet Volume 8.3 fL (7.4-10.4); Platelet Count 169 thou/uL (130-400); Potassium 4.2 mmol/L (3.5-5.1); RBC Distribution Width 11.3 % (11.5-14.5); Red Blood Cell (RBC) Count 4.18 mill/uL (4.70-6.10); Sodium 139 mmol/L (136-145); White Blood Cell (WBC) Count 5.3 thou/uL (4.8-10.8)
--- NOTE | 2018-04-16 16:45 | EKG ---
Test Reason : Blood Pressure : / mmHG Vent. Rate : 046 BPM Atrial Rate : 046 BPM P-R Int : 188 ms QRS Dur : 082 ms QT Int : 462 ms P-R-T Axes : 021 052 094 degrees QTc Int : 404 ms Marked sinus bradycardia Cannot rule out Inferior infarct , age undetermined T wave abnormality, consider anterolateral ischemia Abnormal ECG Confirmed by MEGHA SQUIRES (2) on 04/16/2018 4:45:22 PM Referred By: MARINA Confirmed By:MEGHA SQUIRES
== END 2018-04-11 12:22 | disposition home or self-care (01) ==
LOC: LABBT 12:21
PROVIDERS: ATTEND Urology
DX: Z01.818 Encounter for other preprocedural examination (principal); N40.0 Benign prostatic hyperplasia without lower urinary tract symptoms
CPT/HCPCS: 80048; 81001; 85027; 85610; 85730; 87086

== ENCOUNTER → 2018-04-13 | Day surgery (SDC) | payer OTHER ==
--- NOTE | 2018-04-13 13:02 | SPC ---
LEFT UPPER EXTREMITY PICC EXCHANGE: DATE: 04/13/18. COMPARISON: 03/15/18. HISTORY: A 63-year-old male undergoing IV antibiotic therapy. The patient's PICC was inadvertently retracted and a PICC exchange was requested. FINDINGS: Informed consent obtained prior to the procedure. Pre-existing PICC and left antecubital fossa prepp ed and draped in normal sterile fashion. The patient's PICC was cut and a wire was advanced through the PICC into the IVC, retracted to the cavoatrial junction. The PICC was removed. A new PICC was c ut to 47 cm and advanced over the wire. The wire was removed. The tip of the catheter is at the cav oatrial junction. The catheter flushes well and is ready for use. EXPOSURE DATA: 0 minutes, fluoroscopic time, 1661 mGy*^cm2. IMPRESSION: Successful exchange of left upper extremity PICC. POS: [facility]
== END ==
LOC: SPEC 09:39
PROVIDERS: ATTEND Internal Medicine Infectious Disease
PROC: 02HV33Z Insertion of Infusion Device into Superior Vena Cava, Percutaneous Approach (ICD-10-PCS; principal; 2018-04-13)
PROC: 02PY33Z Removal of Infusion Device from Great Vessel, Percutaneous Approach (ICD-10-PCS; principal; 2018-04-13)
DX: T82.524A Displacement of infusion catheter, initial encounter (principal); M86.9 Osteomyelitis, unspecified; Z79.2 Long term (current) use of antibiotics; Z79.899 Other long term (current) drug therapy
CPT/HCPCS: 36584; C1751

== ENCOUNTER 2018-04-19 08:32 | Outpatient (CLI) | payer OTHER ==
--- NOTE | 2018-04-19 10:35 | ULT ---
BILATERAL TESTICULAR ULTRASOUND WITH DOPPLER: Date: 04/19/18 HISTORY: Recurrent UTI and right-sided scrotal mass. FINDINGS: The right testis measures 3.3 x 4.5 x 2.5 cm. The left testis measures 2.8 x 4.2 x 2.0 cm. The right epididymis measures 1.4 x 0.8 x 0.8 cm. The left epididymis measures 1.4 x 1.0 x 0.8 cm. Flow is demo nstrated to both testes and epididymides. No testicular mass is seen. No hydroceles are identified. There is a right extratesticular shadowing solid appearing mass in the right scrotum measuring 1.3 x 1.0 x 0.7 cm. There are tubular structures with increased flow during Valsalva in the left groin consistent with va ricocele. IMPRESSION: 1. Right-sided extratesticular mass suspicious for neoplasm. 2. Left-sided varicocele. POS: [facility]
== END 2018-04-19 08:33 | disposition home or self-care (01) ==
LOC: ULT 08:32
PROVIDERS: ATTEND Urology
DX: N39.0 Urinary tract infection, site not specified (principal); N50.9 Disorder of male genital organs, unspecified; I86.1 Scrotal varices
CPT/HCPCS: 76870; 93976

== ENCOUNTER 2018-04-24 05:40 | Day surgery (SDC) | payer OTHER ==
[2018-04-11 12:37] VITALS: BMI 43.9
[2018-04-24] MEDS ORDERED: Bupivacaine 0.25% HCL 30 ML VIAL ONE (06:47)
[2018-04-24] MEDS ORDERED: CEFAZOLIN/Water 2 GM/20 ML SYRINGE ONE (07:02)
[2018-04-24] MEDS ORDERED: Midazolam HCl 2 mg/2 ml Vial ONE (07:15)
[2018-04-24] MEDS ORDERED: Fentanyl 250 MCG/5 ML VIAL ONE (07:18)
[2018-04-24] MEDS ORDERED: Neomycin-Polymyxin 1 ML AMP ONE (08:56)
[2018-04-24] MEDS ORDERED: Bacitracin Zinc Ointment 30 gm TUBE ONE (09:21)
[2018-04-24] MEDS ORDERED: Fentanyl 100 MCG/2 ML VIAL ONE (10:09)
[2018-04-24] MEDS ORDERED: Morphine 4 MG/ML VIAL ONE (10:45)
[2018-04-24] MEDS ORDERED: HYDROcodone/Acetaminophen 5/325 mg Tablet ONE (11:12)
--- NOTE | 2018-04-24 11:27 | OP ---
DATE OF PROCEDURE: 04/24/2018 PREOPERATIVE DIAGNOSES: 1. History of benign prostatic hypertrophy multidrug-resistant urinary tract infection. 2. History of right paratesticular mass of unclear etiology. POSTOPERATIVE DIAGNOSES: 1. History of benign prostatic hypertrophy multidrug-resistant urinary tract infection. 2. History of right paratesticular mass of unclear etiology. PROCEDURE: Right inguinal exploration, excision of right paratesticular mass, frozen pathology negative for malignancy, excision of penile lesion SURGEON: Cathleen Bueno D.O. ANESTHESIA: General. COMPLICATIONS: None apparent. ESTIMATED BLOOD LOSS: Less than 15 mL. IV FLUIDS: 1 liter. SPECIMEN: Right paratesticular mass, frozen negative for malignancy, grossly appears to be inflammatory fatty lesion, appears benign. Right penoscrotal lesion for permanent INDICATIONS FOR THE PROCEDURE AND HISTORY: Mr. Mejia is a 63-year-old male , who was scheduled today for transurethral resection of prostate. He came into my office last week, as he was concerned about a right paratesticular mass that was not appreciated previously. We did obtain a scrotal ultrasound demonstrating a right paratesticular mass, measuring largest 1.3 cm, solid- appearing, malignancy could not be ruled out. Therefore, he presents today to undergo inguinal exploration, excision of right paratesticular mass for definitive diagnosis. Possibility of right orchiectomy was reviewed. Risks and complications including, but not limited to, bleeding, pain, infection, wound complication, especially given his morbid obesity, infection, chronic pain , testicular atrophy, injury to adjacent structures were reviewed with the patient in detail. All questions answered to his satisfaction and he desired to proceed without reservation. DESCRIPTION OF THE PROCEDURE: After an informed consent is signed, the patient is taken to the operating room, placed in a supine position. General anesthesia was administered. Broad-spectrum antibiotics and bilateral REENA SCDs have already been placed. We approached the right paratesticular mass to the right inguinal incision. His ASIS and his pubic tubercle were identified and the level of the external ring. Right inguinal incision was made to the level of his external ring. The patient is morbidly obese, he had a significant amount of subcutaneous fibroadipose tissue. We did dissect to the level of his external oblique fascia, which appeared to be very attenuated. We identified the right external ring, opened the external oblique fascia. His ilioinguinal nerve could not be grossly identified given that his external oblique fascia was severely attenuated. The cord structures were identified. Due to significant amount of prepubertal fat, dissection was somewhat challenging; however, we identified the external ring. The cord structures and the right testis with intact tunica vaginalis was delivered. This was completely mobilized to the level of the internal ring, mobilizing the cord. The tunica vaginalis was not opened, as the mass did not breach tunica vaginalis layer. The right paratesticular scrotal mass was then delivered through the inguinal incision, which appeared to be quite adherent to the dartos fascia. It had a pseudocapsule, which was inadvertently breached, which exposed the underlying tissue, which grossly appeared to be fatty tissue. We delivered this through the inguinal incision and sent for frozen section, which demonstrated frozen negative for malignancy. Therefore, we then proceeded to close our wound. The scrotal cavity was copiously irrigated and good hemostasis was obtained at the dartos fascia. The cord structures were then placed in a normal anatomic position and testicle placed back in his scrotum and has normal anatomical position. We did perform Doppler at the end of the procedure, which confirmed good flow. Visually, the cord was in its normal anatomical location without twisting. The fascia was then closed with 2-0 Vicryl in a running fashion. Subcutaneous tissue was then reapproximated using 2-0 chromic. Skin was closed with 4-0 Monocryl in a subcuticular fashion. Approximately 0 mL of 0.25% Marcaine was then infiltrated for local anesthesia. Dermabond was placed. After shaving the patient, there was a penile lesion at the penoscrotal junction , approximately 1 cm. This was excised to complete with Metzenbaum scissors. The base of the lesion was cauterized and skin reapproximated using 4-0 Monocryl. It had the appearance of a genital wart, therefore was removed. Dermabond was placed on this as well. He tolerated the procedure well and transported to the recovery room in stable condition. He is currently on IV Invanz due to multidrug resistant UTI, which we will continue. This has been established to continue until this Tuesday. I will see him in conference with Infectious Disease regarding course of his antibiotic regimen, as his TURP will need to be deferred until he completely convalesces from his right inguinal incision performed today. He is discharged with [place] 5/325, #40 ; Colace #30 b.i.d. He is to continue his BPH medications of Flomax and finasteride. [facility]
[2018-04-24] MEDS ORDERED: PROVENTIL INHALER 6.7 G (200 INHALATIONS) ONE (12:16)
[2018-04-24] MEDS ORDERED: PROPOFOL 200 MG/20 ML VIAL ONE (12:16)
[2018-04-24] MEDS ORDERED: Ketorolac Tromethamine 30 MG/ML VIAL ONE (12:16)
[2018-04-24] MEDS ORDERED: Lidocaine 1% PF 5 ML VIAL ONE (12:16)
[2018-04-24] MEDS ORDERED: Glycopyrrolate 0.2 MG/ML 5 ML SYRINGE ONE (12:16)
[2018-04-24] MEDS ORDERED: Metoclopramide HCl 10 MG/2 ML VIAL ONE (12:16)
[2018-04-24] MEDS ORDERED: Dexamethasone 20 MG/5 ML VIAL ONE (12:16)
[2018-04-24] MEDS ORDERED: Ondansetron HCl/PF 4 MG/2 ML Vial ONE (12:16)
== END 2018-04-24 13:46 | disposition short-term general hospital (02) ==
LOC: SDC 05:40
PROVIDERS: ATTEND Urology
PROC: 0VBSXZZ Excision of Penis, External Approach (ICD-10-PCS; principal; 2018-04-24)
PROC: 0VB90ZZ Excision of Right Testis, Open Approach (ICD-10-PCS; principal; 2018-04-24)
DX: L82.1 Other seborrheic keratosis (principal); N50.89 Other specified disorders of the male genital organs; N39.0 Urinary tract infection, site not specified; B96.20 Unspecified Escherichia coli [E. coli] as the cause of diseases classified elsewhere; N40.0 Benign prostatic hyperplasia without lower urinary tract symptoms; I10 Essential (primary) hypertension; E78.00 Pure hypercholesterolemia, unspecified; E78.5 Hyperlipidemia, unspecified; E66.01 Morbid (severe) obesity due to excess calories; Z68.41 Body mass index [BMI] 40.0-44.9, adult; Z87.891 Personal history of nicotine dependence; Z79.899 Other long term (current) drug therapy; Z16.30 Resistance to unspecified antimicrobial drugs
CPT/HCPCS: 96374; J2250; J2270; J3010; S0020

== ENCOUNTER 2018-07-31 06:28 | Outpatient (CLI) | payer OTHER ==
[2018-07-31 12:39] LABS: Bilirubin Negative (Negative); Blood, Urine Negative (Negative); Clarity CLEAR (Clear); Glucose, Urine (Dipstick) Negative (Negative); Leukocyte Large (Negative); Nitrite Negative (Negative); Protein, Urine (Dipstick) Negative (Neg-Trace); Specific Gravity, Urine 1.019 (1.002-1.036); Urobilinogen 0.2 mg/dL (0.2-1.0)
[2018-07-31 12:40] LABS: Bacteria/HPF None Seen HPF (None Seen); Hyaline Casts/LPF 4-6 HYALINE CAST LPF (0-3 Hyaline); Squamous Epithelial 0-3 HPF (0-3)
[2018-07-31 12:41] LABS: Anion Gap 12 mmol/L (10-20); BUN (Urea Nitrogen) 9 mg/dL (8.4-25.7); Calc. Creatinine Clearance 0 mL/min (70-130); Carbon Dioxide 26 mmol/L (23-31); Chloride 105 mmol/L (98-107); Estimated GFR-MDRD 90; Glucose 111 mg/dL (80-115); Potassium 3.8 mmol/L (3.5-5.1); Sodium 139 mmol/L (136-145)
[2018-07-31 12:41] LABS: INR-International Normal Ratio 1.1; PTT 33.3 SEC (22.9-36.1); Prothrombin Time 13.8 SEC (12.0-14.7)
[2018-07-31 14:31] LABS: Hemoglobin 14.5 g/dL (14.0-18.0); Mean Corpuscular HGB CONC 33.8 g/dL (32.0-36.0); Mean Corpuscular Hemoglobin 31.8 pg (27.0-31.0); Mean Corpuscular Volume 94.2 fL (78.0-98.0); Mean Platelet Volume 8.7 fL (7.4-10.4); Platelet Count 205 thou/uL (130-400); RBC Distribution Width 12.5 % (11.5-14.5); Red Blood Cell (RBC) Count 4.56 mill/uL (4.70-6.10); White Blood Cell (WBC) Count 5.7 thou/uL (4.8-10.8)
--- NOTE | 2018-07-31 17:22 | EKG ---
Test Reason : Blood Pressure : / mmHG Vent. Rate : 058 BPM Atrial Rate : 058 BPM P-R Int : 182 ms QRS Dur : 084 ms QT Int : 444 ms P-R-T Axes : 031 069 043 degrees QTc Int : 435 ms Sinus bradycardia Nonspecific T wave abnormality Abnormal ECG When compared with ECG of 11-APR-2018 13:00, Minimal criteria for Inferior infarct are no longer Present Confirmed by DR. Angela RAMIREZ (3) on 07/31/2018 5:22:30 PM Referred By: ANEESH Confirmed By:DR. Angela RAMIREZ
== END 2018-07-31 06:29 | disposition home or self-care (01) ==
LOC: LABBT 06:28
PROVIDERS: ATTEND Urology
DX: Z01.812 Encounter for preprocedural laboratory examination (principal); Z12.5 Encounter for screening for malignant neoplasm of prostate; N40.0 Benign prostatic hyperplasia without lower urinary tract symptoms; N28.1 Cyst of kidney, acquired; N50.9 Disorder of male genital organs, unspecified; N39.0 Urinary tract infection, site not specified; R82.71 Bacteriuria; Z87.442 Personal history of urinary calculi
CPT/HCPCS: 80048; 81001; 85027; 85610; 85730; 87077; 87086; 87186; 93005; 93010

== ENCOUNTER → 2018-08-04 | Day surgery (SDC) | payer OTHER ==
[~2018-08-04] MED LIST changes: +Ertapenem 1 GM in Sodium Chloride 0.9% 100 ML IVPB SCH
[2018-08-04 15:38] VITALS: BP 132/77; TEMP 97.9
--- NOTE | 2018-08-04 18:34 | SPC ---
ULTRASOUND GUIDED LEFT UPPER EXTREMITY PICC LINE PLACEMENT: 07/25/18 HISTORY: UTI. Patient needs terminal operations supervisor IV antibiotics. TECHNIQUE: After informed consent was obtained, patient was placed on the angiography table in the supine posit ion. The left upper extremity was meticulously prepped and draped in the usual sterile fashion. Skin and subcutaneous tissues were infiltrated with buffered 1% lidocaine for local anesthesia at the intended puncture site. The left basilic vein was accessed utilizing micropuncture technique and con current real time ultrasound guidance. 5 Mongolian peel away sheath was placed. The catheter was measure d and cut to the appropriate length. Catheter was placed over the guidewire with the tip positioned o verlying the distal SVC. Guidewire and peel away sheath were removed. Catheter was secured in place u tilizing a dry sterile dressing. The catheter was accessed and easily aspirated and flushed. The pat ient tolerated the procedure well without immediate complication. FLUOROSCOPY: Total fluoroscopy time is 0 minutes with total dose of 74 mGy*cm2. FINDINGS: Technically successful placement of a single lumen 5 Mongolian 41 cm PICC line via the left basilic vei n. Tip of the catheter overlies the distal SVC. IMPRESSION: Technically successful left upper extremity PICC line placement. POS: [facility]
== END ==
LOC: SPEC 12:37
PROVIDERS: ATTEND Internal Medicine Infectious Disease
PROC: B548ZZA Ultrasonography of Superior Vena Cava, Guidance (ICD-10-PCS; principal; 2018-08-04)
PROC: 02HV33Z Insertion of Infusion Device into Superior Vena Cava, Percutaneous Approach (ICD-10-PCS; principal; 2018-08-04)
DX: N39.0 Urinary tract infection, site not specified (principal); N40.0 Benign prostatic hyperplasia without lower urinary tract symptoms; Z79.2 Long term (current) use of antibiotics; Z79.899 Other long term (current) drug therapy
CPT/HCPCS: 36569; 96365; C1751; J1335; J1644; J7050

== ENCOUNTER 2018-08-05 13:13 | Emergency (ER) | payer OTHER ==
[2018-08-05] MEDS ORDERED: Dexamethasone 4 mg/ml Vial ONE (15:09)
[2018-08-05] MEDS ORDERED: Ketorolac Tromethamine 30 MG/ML VIAL ONE (15:09)
--- NOTE | 2018-08-05 15:25 | RAD ---
TWO VIEWS OF THE CHEST: DATE: 08/05/2018. COMPARISON: 03/04/2013. HISTORY: Cough for a week. FINDINGS: There is a left upper extremity PICC, distal tip overlying the region of the SVC. No pneumothorax or pleural fluid. No focal consolidation or alveolar edema. IMPRESSION: No acute findings. POS: [facility]
== END 2018-08-05 15:43 | disposition home or self-care (01) ==
LOC: ERS 13:13
DX: J20.9 Acute bronchitis, unspecified (principal); R09.1 Pleurisy; N40.0 Benign prostatic hyperplasia without lower urinary tract symptoms; Z87.891 Personal history of nicotine dependence; Z79.82 Long term (current) use of aspirin; Z79.899 Other long term (current) drug therapy
CPT/HCPCS: 71046; 94640; J1100; J1885; J7620

== ENCOUNTER 2018-08-07 11:54 | Emergency (ER) | payer OTHER ==
--- NOTE | 2018-08-07 15:37 | RAD ---
CHEST 2 VIEWS: Date: 08/07/18 HISTORY: Cough and congestion. COMPARISON: 08/05/18. FINDINGS: Stable left-sided PICC line. Slight elongation of aorta. Normal cardiac silhouette. Pulmonary vessels and hilum are normal. Costophrenic angles are clear. Persistently diminished lung volumes, without c onsolidation or mass. No pneumothorax or osseous abnormalities. IMPRESSION: No acute cardiopulmonary process. POS: [facility]
== END 2018-08-07 15:36 | disposition home or self-care (01) ==
LOC: ERS 11:54
DX: J20.9 Acute bronchitis, unspecified (principal); J01.90 Acute sinusitis, unspecified; E78.5 Hyperlipidemia, unspecified
CPT/HCPCS: 71046

== ENCOUNTER 2018-08-16 05:48 | Inpatient (IN) | payer OTHER ==
[2018-08-16] MEDS ORDERED: MEROPENEM 1 GM/50 ML 1 GM in Premix Bag 1 BAG IVPB SCH (06:45)
[2018-08-16] MEDS ORDERED: Fentanyl 250 MCG/5 ML VIAL ONE (06:54)
[2018-08-16] MEDS ORDERED: Zolpidem Tartrate 5 MG TAB PO PRN (10:01)
[2018-08-16] MEDS ORDERED: hydrALAZINE 20 MG/ML VIAL SLOW IVP PRN ×2 (10:01)
[2018-08-16] MEDS ORDERED: diphenhydrAMINE 50 MG/ML VIAL IVP PRN (10:01)
[2018-08-16] MEDS ORDERED: Morphine 4 MG/ML VIAL SLOW IVP PRN (10:01)
[2018-08-16] MEDS ORDERED: Acetaminophen 500 MG TAB PO PRN (10:01)
[2018-08-16] MEDS ORDERED: Mag-Al 1200 mg/1200 mg/30 ML UDCUP PO PRN (10:01)
[2018-08-16] MEDS ORDERED: Morphine 2 MG/ML SYRINGE SLOW IVP PRN (10:01)
[2018-08-16] MEDS ORDERED: Promethazine HCl 25 MG/ML VIAL IM PRN (10:12)
[2018-08-16] MEDS ORDERED: Ondansetron HCl/PF 4 MG/2 ML Vial IVP PRN (10:12)
[2018-08-16] MEDS ORDERED: Promethazine HCl 25 MG/ML VIAL SLOW IVP PRN (10:12)
[2018-08-16] MEDS ORDERED: Fentanyl 100 MCG/2 ML VIAL ONE ×2 (10:45→11:41)
--- NOTE | 2018-08-16 11:05 | OP ---
DATE OF PROCEDURE: 08/16/2018 PREOPERATIVE DIAGNOSIS: A 63-year-old male with history of recurrent urinary tract infection, multi-drug resistant Escherichia coli. POSTOPERATIVE DIAGNOSIS: A 63-year-old male with history of recurrent urinary tract infection, multi-drug resistant Escherichia coli. PROCEDURES PERFORMED: Cystoscopy and transurethral resection of the prostate. ANESTHESIA: General. SPECIMEN: TUR of prostate. DRAINS: A 22-Tamazight 30 mL Valero with CBI. EBL: About 100. IV FLUIDS: 800 mL. COMPLICATIONS: None apparent. DISPOSITION: To recovery room in stable condition. INDICATIONS FOR PROCEDURE AND HISTORY: Mr. Mejia is a 63-year-old male, who has a history of BPH and multi-drug resistant E. coli urinary tract infection. He has seen Dr. Last, underwent PICC line. He has been on IV Invanz per the PICC line. Repeat urine culture negative. He presents today for cysto and TURP. Risks and complications of the procedure were reviewed with him in detail including, but not limited to, bleeding, pain, infection, injury to adjacent organs, urosepsis, stricture formation, bladder neck contracture, clot retention, incontinence, urosepsis, possible injury to adjacent organs, PE, DVT, and perioperative morbidity and mortality. All questions were answered to his satisfaction and desired to proceed. DESCRIPTION OF PROCEDURE: After an informed consent was signed, the patient was taken to the operating room, placed in a dorsal lithotomy position with the genital area prepped and draped in the usual surgical sterile fashion. Bilateral REENA hose SCDs and his IV meropenem was provided through his PICC line. A 22-Tamazight cystoscope was utilized for cystoscopy, which demonstrated normal anterior urethra. Prostatic urethra demonstrated moderately obstructing prostatic urethra with a component of high median bar and a intravesical median lobe component subtrigonal. The UOs were seen approximately 3 to 4 mm from the bladder neck reflection of the median lobe. There was no evidence of bladder tumor, bladder stones, or significant diverticulum. UOs were kept out of harm's way at all times. At this time, a 26-Tamazight resectoscope with a visual obturator was passed without difficulty. We performed a transurethral resection of prostate using gyrus bipolar. As there was this, we took the median lobe down first. Most of his obstructive component was from the median lobe ,ventrally. We took down the median lobe at the bladder neck. There was a significant amount of adenomatous tissue in the bladder neck median lobe portion. I did not undermine the trigone with the median lobe taken down flush. I resected the lateral lobe systematically starting from the left. There was some obstructive component anterior and mostly in the posterior component of his prostate. We resected the prostate in a classic fashion. We had a good TUR defect at the end of the procedure. All prostatic chips were evacuated with Kimengi evacuator. He did have significant unroofing of intermittent prostatic calculi, given that he has history of chronic prostatitis. He did have also significant vascularity of the prostate, I had to utilize bipolar to cauterize more frequently than usual as his prostate was quite vascular and chronic prostatitis. A 22 Tamazight Valero catheter was able to be passed without any resistance. Overall, he had minimal blood loss and tolerated the procedure well. Given the hypervascularity of the prostate, I will keep him on his Proscar for few weeks. We will monitor him overnight with continuous bladder irrigation. Job ID: [id number]
[2018-08-16 11:48] LABS: #Basophils 0.1 thou/uL (0.0-0.2); #Eosinphils 0.1 thou/uL (0.0-0.7); #Lymphocytes 1.2 thou/uL (1.20-3.40); #Monocytes 0.2 thou/uL (0.11-0.59); #Neutrophils 6.8 thou/uL (1.40-6.50); %Basophils 1.3 % (0.0-1.0); %Eosinophils 0.9 % (0.0-10.0); %Lymphocytes 14.3 % (21.0-51.0); %Monocytes 2.4 % (0.0-10.0); %Neutrophils 81.1 % (42.0-75.0); Hemoglobin 14.7 g/dL (14.0-18.0); Mean Corpuscular HGB CONC 32.6 g/dL (32.0-36.0); Mean Corpuscular Hemoglobin 31.4 pg (27.0-31.0); Mean Corpuscular Volume 96.4 fL (78.0-98.0); Mean Platelet Volume 8.3 fL (7.4-10.4); Platelet Count 190 thou/uL (130-400); RBC Distribution Width 12.1 % (11.5-14.5); Red Blood Cell (RBC) Count 4.69 mill/uL (4.70-6.10); White Blood Cell (WBC) Count 8.4 thou/uL (4.8-10.8)
[2018-08-16 12:14] LABS: Anion Gap 13 mmol/L (10-20); BUN (Urea Nitrogen) 13 mg/dL (8.4-25.7); Calc. Creatinine Clearance 117 mL/min (70-130); Calcium 8.4 mg/dL (7.8-10.44); Carbon Dioxide 22 mmol/L (23-31); Chloride 106 mmol/L (98-107); Estimated GFR-MDRD 82; Glucose 142 mg/dL (80-115); Potassium 4.4 mmol/L (3.5-5.1); Sodium 137 mmol/L (136-145)
[2018-08-16] MEDS ORDERED: Dexamethasone 20 MG/5 ML VIAL ONE (13:02)
[2018-08-16] MEDS ORDERED: Rocuronium Bromide 10 MG/ML (10ML VIAL) ONE (13:02)
[2018-08-16] MEDS ORDERED: Ondansetron PF 4 MG/2 ML Vial ONE (13:02)
[2018-08-16] MEDS ORDERED: PROPOFOL 200 MG/20 ML VIAL ONE (13:02)
[2018-08-16] MEDS ORDERED: ePHEDrine/0.9% NaCl/PF SYRINGE 50 mg/10 ml ONE (13:02)
[2018-08-16 13:11] VITALS: BMI 36.8
[2018-08-16] MEDS: HYDROcodone/Acetaminophen 7.5/325 mg Tablet PO PRN ×3 (13:21→22:17)
[2018-08-16] MEDS ORDERED: Iothalamate Meglumine 60% 50 ML VIAL FS ONE (14:13)
[2018-08-16] MEDS: Sodium Chloride 0.9% 1,000 ML IV SCH ×2 (16:54)
[2018-08-16] MEDS: Meropenem 2 GM in Sodium Chloride 0.9% 100 ML IVPB SCH ×2 (16:54→23:51)
[2018-08-16] MEDS: Famotidine/PF 20 mg/2ml Vial SLOW IVP SCH (20:43)
[2018-08-16] MEDS: Docusate 100 MG CAP PO SCH (20:43)
[2018-08-17] MEDS: Sodium Chloride 0.9% 1,000 ML IV SCH ×2 (02:09→11:49)
[2018-08-17] MEDS: HYDROcodone/Acetaminophen 7.5/325 mg Tablet PO PRN ×4 (04:38→20:20)
[2018-08-17 06:30] LABS: #Lymphocytes 1.5 thou/uL (1.20-3.40); #Monocytes 0.7 thou/uL (0.11-0.59); #Neutrophils 9.7 thou/uL (1.40-6.50); %Basophils 0.2 % (0.0-1.0); %Eosinophils 0.4 % (0.0-10.0); %Lymphocytes 12.3 % (21.0-51.0); %Monocytes 5.9 % (0.0-10.0); %Neutrophils 81.3 % (42.0-75.0); Mean Corpuscular HGB CONC 33.4 g/dL (32.0-36.0); Mean Corpuscular Hemoglobin 32.5 pg (27.0-31.0); Mean Corpuscular Volume 97.3 fL (78.0-98.0); Mean Platelet Volume 8.3 fL (7.4-10.4); Platelet Count 185 thou/uL (130-400); RBC Distribution Width 12.1 % (11.5-14.5); Red Blood Cell (RBC) Count 4.29 mill/uL (4.70-6.10); White Blood Cell (WBC) Count 11.9 thou/uL (4.8-10.8)
[2018-08-17 06:47] LABS: Anion Gap 11 mmol/L (10-20); BUN (Urea Nitrogen) 11 mg/dL (8.4-25.7); Calc. Creatinine Clearance 133 mL/min (70-130); Calcium 8.2 mg/dL (7.8-10.44); Carbon Dioxide 24 mmol/L (23-31); Chloride 106 mmol/L (98-107); Estimated GFR-MDRD Greater than 90; Glucose 123 mg/dL (80-115); Sodium 137 mmol/L (136-145)
--- NOTE | 2018-08-17 08:22 | PRG ---
DATE OF SERVICE: 08/17/2018 INPATIENT PROGRESS NOTE SUBJECTIVE: The patient is without complaints, doing well. His CBI was held this morning per my request at 4:00 a.m. OBJECTIVE: VITAL SIGNS: Stable. ABDOMEN: Morbidly obese, protuberant. No rigidity. No rebound. He has had one bowel movement since surgery. PERTINENT LABORATORY DATA: White count 11, hemoglobin 14, and platelet 185. Creatinine stable at 0.82. His hemoglobin is stable from postop period. Urine with CBI held is transparent red. His CBI was restarted with immediate clearing. IMPRESSION AND PLAN: Mr. Mejia is a 63-year-old male with history of recurrent prostatitis, multidrug-resistant Escherichia coli urinary tract infection, and history of BPH, postop day #1, status post transurethral resection of the prostate. His CBC, hemoglobin has not changed significantly postop, however, due to hematuria component with CBI held, although mild, I will restart his CBI as I would like his urine to be more clear before Valero catheter removal for voiding trial, especially as his prostate was vascular due to chronic prostatitis and recurrent UTI. He verbalizes understanding. He is clinically stable. decrease his IV fluids. We will continue meropenem due to history of multidrug-resistant Escherichia coli urinary tract infection. Job ID: [id number] [facility]
[2018-08-17] MEDS: Finasteride 5 MG TAB PO SCH (08:30)
[2018-08-17] MEDS: Famotidine/PF 20 mg/2ml Vial SLOW IVP SCH ×2 (08:30→20:20)
[2018-08-17] MEDS: Meropenem 2 GM in Sodium Chloride 0.9% 100 ML IVPB SCH ×3 (08:30→23:08)
[2018-08-17] MEDS: Tamsulosin HCl 0.4 MG CAP PO SCH (08:30)
[2018-08-17] MEDS: Docusate 100 MG CAP PO SCH ×2 (08:35→20:20)
[2018-08-17] MEDS ORDERED: Tamsulosin HCl 0.4 MG CAP PO SCH (09:00)
[2018-08-18] MEDS: Sodium Chloride 0.9% 1,000 ML IV SCH (01:11)
[2018-08-18 06:34] LABS: #Basophils 0.1 thou/uL (0.0-0.2); #Eosinphils 0.3 thou/uL (0.0-0.7); #Lymphocytes 2.2 thou/uL (1.20-3.40); #Monocytes 0.8 thou/uL (0.11-0.59); #Neutrophils 7.7 thou/uL (1.40-6.50); %Basophils 0.7 % (0.0-1.0); %Eosinophils 2.8 % (0.0-10.0); %Lymphocytes 19.9 % (21.0-51.0); %Monocytes 7.1 % (0.0-10.0); %Neutrophils 69.6 % (42.0-75.0); Hemoglobin 14.3 g/dL (14.0-18.0); Mean Corpuscular HGB CONC 32.4 g/dL (32.0-36.0); Mean Corpuscular Hemoglobin 31.9 pg (27.0-31.0); Mean Corpuscular Volume 98.5 fL (78.0-98.0); Mean Platelet Volume 8.6 fL (7.4-10.4); Platelet Count 182 thou/uL (130-400); RBC Distribution Width 12.4 % (11.5-14.5); Red Blood Cell (RBC) Count 4.46 mill/uL (4.70-6.10)
[2018-08-18] MEDS: HYDROcodone/Acetaminophen 7.5/325 mg Tablet PO PRN ×2 (06:38→15:29)
[2018-08-18 08:13] VITALS: TEMP 97.8
[2018-08-18] MEDS: Tamsulosin HCl 0.4 MG CAP PO SCH (08:25)
[2018-08-18] MEDS: Docusate 100 MG CAP PO SCH (08:25)
[2018-08-18] MEDS: Meropenem 2 GM in Sodium Chloride 0.9% 100 ML IVPB SCH (08:25)
[2018-08-18] MEDS: Finasteride 5 MG TAB PO SCH (08:25)
--- NOTE | 2018-08-18 08:53 | PRG ---
DATE OF SERVICE: 08/18/2018 SUBJECTIVE: The patient without complaints, doing well. His vital signs are stable. His CBI was held this morning per my request. Urine output is rocío clear. 4000 of urine output. OBJECTIVE: GENERAL: The patient is in no acute distress. ABDOMEN: Morbidly obese. GENITOURINARY: Valero catheter demonstrating rocío yellow urine. EXTREMITIES: No cyanosis, clubbing, or edema. LABORATORY DATA: Pertinent labs today; white count of 11, stable, hemoglobin stable at 14.3, and platelet 182. Renal function stable at 0.82. IMPRESSION AND PLAN: Mr. Mejia is a 63-year-old male with, 1. History of morbid obesity. 2. History of multi-drug resistant Escherichia coli urinary tract infection/prostatitis. Postop day #2, status post transurethral resection of the prostate. His continuous bladder irrigation has been held this morning, urine output is relatively clear. Voiding trial initiated. We will check the patient's clinical status this afternoon. We will continue IV meropenem until next week, coordinated with Infectious Disease. We will monitor his urine output, postvoid residual. Job ID: [id number]
[2018-08-18] MEDS: Famotidine/PF 20 mg/2ml Vial SLOW IVP SCH (09:09)
[2018-08-18 11:03] VITALS: BP 107/68
--- NOTE | 2018-08-18 15:31 | PRG ---
DATE OF SERVICE: HISTORY OF PRESENT ILLNESS: Mr. Mejia has a history of recurrent UTIs. I saw him in the February of this year with a history of BPH, hypertension, previous UTIs with suprapubic pain. cystitis. He was treated for protracted period of time and he was scheduled for a prostatic resection, which was accomplished by Dr. Bueno on August 16. The operative report was reviewed. The patient had a normal anterior urethra. There was moderately obstructing prostatic urethra with intravesical median lobe and no bladder stones or bladder tumor noted. No diverticulum. All the samples thus far have indicated a benign prostatic tissue, and repeat cultures from July 31 with the same E coli that he had in May and in February with an ESBL phenotype. The patient is currently on meropenem. He has a Valero catheter in place. No headaches. No shortness of breath or abdominal pain. No diarrhea. PHYSICAL EXAMINATION: VITAL SIGNS: Show normal temperature, BP 100/60, pulse 63. LUNGS: Clear. HEART: S1, S2. Regular rate. ABDOMEN: Soft, not distended. NEURO: Nonfocal. LABORATORY DATA: White cell count 11, platelets 182, hemoglobin 14, and creatinine 0.82. Repeat urine culture; no growth at 48 hours from August 11. ASSESSMENT AND DISCUSSION: Benign prostatic hyperplasia with recurrent urinary tract infection with persistence of the same escherichia coli, probably from upper tracts and prostatic tissue colonization. Continue long-term meropenem or Invanz . Probably treat for 4 to 6 weeks. Job ID: [id number]
== END 2018-08-18 16:01 | disposition home or self-care (01) | DRG 714 ==
LOC: SDC 05:48 → SURG B 10:01 → OBSVTOIN 10:01
PROVIDERS: ADMIT Urology; ATTEND Urology
PROC: 0VT08ZZ Resection of Prostate, Via Natural or Artificial Opening Endoscopic (ICD-10-PCS; principal; 2018-08-16)
DX: N40.1 Benign prostatic hyperplasia with lower urinary tract symptoms (principal); E66.01 Morbid (severe) obesity due to excess calories; R31.9 Hematuria, unspecified; N41.1 Chronic prostatitis; E66.9 Obesity, unspecified; Z87.440 Personal history of urinary (tract) infections; Z68.36 Body mass index [BMI] 36.0-36.9, adult
CPT/HCPCS: 36415; 80048; 85025; 88305; J1100; J2185; J2405; J2704; J3010; J7050; Q9961; S0028

== ENCOUNTER 2018-12-21 12:13 | Emergency (ER) | payer OTHER ==
--- NOTE | 2018-12-21 13:02 | RAD ---
EXAM: Chest 2 views: HISTORY: Cough and congestion COMPARISON: 08/07/2018 FINDINGS: There is a normal-sized cardiomediastinal silhouette. There is no evidence of consolidation, mass, or pleural effusion. The bones are unremarkable. IMPRESSION: No evidence of acute cardiopulmonary disease
== END 2018-12-21 14:11 | disposition home or self-care (01) ==
LOC: ERS 12:13
DX: R05 Cough (principal); E78.5 Hyperlipidemia, unspecified
CPT/HCPCS: 71046; 94640

== ENCOUNTER 2019-03-26 12:24 | Emergency (ER) | payer OTHER ==
[2019-03-26] MEDS ORDERED: Ketorolac Tromethamine 30 MG/ML VIAL ONE (14:00)
[2019-03-26 14:23] LABS: #Eosinphils 0.5 thou/uL (0.0-0.7); #Lymphocytes 1.2 thou/uL (1.20-3.40); #Monocytes 0.5 thou/uL (0.11-0.59); #Neutrophils 4.7 thou/uL (1.40-6.50); %Basophils 0.5 % (0.0-1.0); %Eosinophils 7.4 % (0.0-10.0); %Lymphocytes 17.6 % (21.0-51.0); %Monocytes 7.3 % (0.0-10.0); %Neutrophils 67.2 % (42.0-75.0); Hemoglobin 15.4 g/dL (14.0-18.0); Mean Corpuscular HGB CONC 34.9 g/dL (32.0-36.0); Mean Corpuscular Hemoglobin 34.6 pg (27.0-31.0); Mean Corpuscular Volume 98.9 fL (78.0-98.0); Mean Platelet Volume 8.1 fL (7.4-10.4); Platelet Count 177 thou/uL (130-400); RBC Distribution Width 11.9 % (11.5-14.5); Red Blood Cell (RBC) Count 4.45 mill/uL (4.70-6.10)
[2019-03-26 14:46] LABS: ALT (SGPT) 30 U/L (8-55); AST (SGOT) 24 U/L (5-34); Albumin 4.1 g/dL (3.4-4.8); Alkaline Phosphatase 83 U/L (40-150); Anion Gap 12 mmol/L (10-20); BUN (Urea Nitrogen) 8 mg/dL (8.4-25.7); Bilirubin, Total 0.7 mg/dL (0.2-1.2); Calc. Creatinine Clearance 0 mL/min (70-130); Carbon Dioxide 24 mmol/L (23-31); Chloride 107 mmol/L (98-107); Estimated GFR-MDRD Greater than 90; Globulin 2.6 g/dL (2.4-3.5); Glucose 107 mg/dL (80-115); Potassium 3.7 mmol/L (3.5-5.1); Protein, Total 6.7 g/dL (5.8-8.1); Sodium 139 mmol/L (136-145)
--- NOTE | 2019-03-26 15:32 | ULT ---
Exam: Left upper extremity venous duplex with color and spectral Doppler imaging: HISTORY: Left upper extremity pain, prior PICC line The visualized left internal jugular, subclavian, axillary, brachial, and radial ulnar veins show pha sic flow without intraluminal thrombus. Visualized cephalic and basilic veins are patent. IMPRESSION: Unremarkable left upper extremity venous duplex study. No evidence for deep venous thrombosis.
== END 2019-03-26 16:36 | disposition home or self-care (01) ==
LOC: ERS 12:24
DX: L25.9 Unspecified contact dermatitis, unspecified cause (principal); M79.605 Pain in left leg; E78.5 Hyperlipidemia, unspecified; E78.00 Pure hypercholesterolemia, unspecified; N40.0 Benign prostatic hyperplasia without lower urinary tract symptoms; Z79.899 Other long term (current) drug therapy
CPT/HCPCS: 36415; 80053; 85025; 96372; J1885

== ENCOUNTER 2019-09-08 09:30 | Emergency (ER) | payer OTHER ==
--- NOTE | 2019-09-08 10:32 | RAD ---
EXAM: Chest 2 views: HISTORY: Cough and fever COMPARISON: 12/21/2018 FINDINGS: There is a normal-sized cardiomediastinal silhouette. There is no evidence of consolidation, mass, or pleural effusion. The bones are unremarkable. IMPRESSION: No evidence of acute cardiopulmonary disease
== END 2019-09-08 10:53 | disposition home or self-care (01) ==
LOC: ERS 09:30
DX: J06.9 Acute upper respiratory infection, unspecified (principal); N40.0 Benign prostatic hyperplasia without lower urinary tract symptoms; E78.5 Hyperlipidemia, unspecified; E78.00 Pure hypercholesterolemia, unspecified; Z79.899 Other long term (current) drug therapy
CPT/HCPCS: 71046

== ENCOUNTER 2019-09-10 07:30 | Emergency (ER) | payer OTHER ==
[2019-09-10] MEDS ORDERED: Dexamethasone 10 MG/ML VIAL ONE (08:05)
[2019-09-10] MEDS ORDERED: Lidocaine 1% PF 5 ML VIAL ONE (08:05)
[2019-09-10] MEDS ORDERED: cefTRIAXone\\ROCEPHIN 1 GM VIAL ONE (08:05)
== END 2019-09-10 08:48 | disposition home or self-care (01) ==
LOC: ERS 07:30
DX: K12.2 Cellulitis and abscess of mouth (principal); E78.5 Hyperlipidemia, unspecified; E78.00 Pure hypercholesterolemia, unspecified
CPT/HCPCS: 96372; 99283; J0696; J1100; J2001

== ENCOUNTER 2020-11-26 21:33 | Emergency (ER) | payer OTHER, MEDICARE ==
[~2020-11-26 21:33] MED LIST changes: -Ertapenem 1 GM in Sodium Chloride 0.9% 100 ML IVPB SCH; -Heparin 1,000 UNITS/ML VIAL ONE; +Iopamidol-370 76% 500 ML 1 ML ONE
[2020-11-26 22:01] LABS: #Eosinphils 0.4 thou/uL (0.0-0.7); #Lymphocytes 2.4 thou/uL (1.20-3.40); #Monocytes 0.8 thou/uL (0.11-0.59); #Neutrophils 4.1 thou/uL (1.40-6.50); %Basophils 0.5 % (0.0-1.0); %Eosinophils 4.6 % (0.0-10.0); %Lymphocytes 31.3 % (21.0-51.0); %Monocytes 9.9 % (0.0-10.0); %Neutrophils 53.7 % (42.0-75.0); Hemoglobin 15.2 g/dL (14.0-18.0); Mean Corpuscular Hemoglobin 33.8 pg (27.0-31.0); Mean Corpuscular Volume 99.7 fL (78.0-98.0); Mean Platelet Volume 8.7 fL (7.4-10.4); Platelet Count 180 thou/uL (130-400); RBC Distribution Width 11.8 % (11.5-14.5); Red Blood Cell (RBC) Count 4.49 mill/uL (4.70-6.10); White Blood Cell (WBC) Count 7.6 thou/uL (4.8-10.8)
[2020-11-26 22:10] LABS: ALT (SGPT) 23 U/L (8-55); AST (SGOT) 25 U/L (5-34); Albumin 3.9 g/dL (3.4-4.8); Alcohol 74 mg/dL (Less than 10); Alkaline Phosphatase 86 U/L (40-110); Anion Gap 13 mmol/L (10-20); BUN (Urea Nitrogen) 10 mg/dL (8.4-25.7); Bilirubin, Total 0.3 mg/dL (0.2-1.2); Calc. Creatinine Clearance 0 mL/min (70-130); Calcium 8.9 mg/dL (7.8-10.44); Carbon Dioxide 26 mmol/L (23-31); Chloride 100 mmol/L (98-107); Globulin 2.8 g/dL (2.4-3.5); Glucose 244 mg/dL (80-115); Potassium 3.4 mmol/L (3.5-5.1); Protein, Total 6.7 g/dL (5.8-8.1); Sodium 136 mmol/L (136-145)
[2020-11-26] MEDS ORDERED: Ketorolac Tromethamine 30 MG/ML VIAL ONE (22:21)
== END 2020-11-26 22:50 | disposition home or self-care (01) ==
LOC: ERS 21:33
DX: S70.01XA Contusion of right hip, initial encounter (principal); M54.2 Cervicalgia; M54.6 Pain in thoracic spine; F10.129 Alcohol abuse with intoxication, unspecified; Y90.3 Blood alcohol level of 60-79 mg/100 ml; N40.0 Benign prostatic hyperplasia without lower urinary tract symptoms; E78.5 Hyperlipidemia, unspecified; E78.00 Pure hypercholesterolemia, unspecified; F17.210 Nicotine dependence, cigarettes, uncomplicated; V89.2XXA Person injured in unspecified motor-vehicle accident, traffic, initial encounter
CPT/HCPCS: 36416; 70450; 71045; 71260; 72125; 72170; 74177; 80053; 80307; 85025; 94760; 96374; G0390; J1885; Q9967

== ENCOUNTER 2020-12-02 11:12 | Outpatient (CLI) | payer MEDICARE, MEDICAID | END 2020-12-02 11:13 | disposition home or self-care (01) | LOC: BICRAD 11:12 | PROVIDERS: ATTEND Family Medicine | DX: M79.641 Pain in right hand (principal); M25.531 Pain in right wrist; M19.031 Primary osteoarthritis, right wrist ==

== ENCOUNTER 2021-04-28 12:12 | Emergency (ER) | payer OTHER, MEDICARE, MEDICAID ==
[2021-04-28] MEDS ORDERED: Acetaminophen 500 MG TAB ONE (14:52)
== END 2021-04-28 15:00 | disposition home or self-care (01) ==
LOC: ERS 12:12
DX: S29.012A Strain of muscle and tendon of back wall of thorax, initial encounter (principal); V57.5XXA Driver of pick-up truck or van injured in collision with fixed or stationary object in traffic accident, initial encounter; Z79.899 Other long term (current) drug therapy; E78.5 Hyperlipidemia, unspecified; E78.00 Pure hypercholesterolemia, unspecified; F17.210 Nicotine dependence, cigarettes, uncomplicated
CPT/HCPCS: 71046

== ENCOUNTER 2021-05-22 12:31 | Outpatient (CLI) | payer MEDICARE, MEDICAID | END 2021-05-22 12:32 | disposition home or self-care (01) | LOC: BICULT 12:31 | PROVIDERS: ATTEND Urology | DX: N28.1 Cyst of kidney, acquired (principal); N40.0 Benign prostatic hyperplasia without lower urinary tract symptoms; N39.0 Urinary tract infection, site not specified; Z87.442 Personal history of urinary calculi | CPT/HCPCS: 74018; 76770 ==

== ENCOUNTER 2021-07-07 19:30 | Outpatient (CLI) | payer MEDICARE, MEDICAID | END 2021-07-07 19:31 | disposition home or self-care (01) | LOC: SLEEPLAB 19:30 | PROVIDERS: ATTEND Internal Medicine Critical Care Medicine | DX: G47.33 Obstructive sleep apnea (adult) (pediatric) (principal) | CPT/HCPCS: 95811 ==

== ENCOUNTER 2023-04-01 10:17 | Outpatient (CLI) | payer MEDICARE, MEDICAID | END 2023-04-01 10:18 | disposition home or self-care (01) | LOC: RAD 10:17 | PROVIDERS: ATTEND Internal Medicine | DX: R20.2 Paresthesia of skin (principal); M25.511 Pain in right shoulder; M25.512 Pain in left shoulder; M19.012 Primary osteoarthritis, left shoulder; M19.011 Primary osteoarthritis, right shoulder; M47.812 Spondylosis without myelopathy or radiculopathy, cervical region | CPT/HCPCS: 72040 ==

== ENCOUNTER 2024-01-21 17:40 | Emergency (ER) | payer OTHER, MEDICAID ==
[2024-01-21] MEDS ORDERED: Ibuprofen 800 MG TAB ONE (17:48)
== END 2024-01-21 18:40 | disposition home or self-care (01) ==
LOC: ERS 17:40
DX: S22.41XA Multiple fractures of ribs, right side, initial encounter for closed fracture (principal); E11.9 Type 2 diabetes mellitus without complications; W01.0XXA Fall on same level from slipping, tripping and stumbling without subsequent striking against object, initial encounter; Y93.89 Activity, other specified; Z87.891 Personal history of nicotine dependence

== ENCOUNTER 2024-07-31 08:54 | Outpatient (CLI) | payer OTHER, MEDICAID ==
[2024-07-31] MEDS ORDERED: Iopamidol 370 76% 100 ML VIAL ONE (15:17)
== END 2024-07-31 08:55 | disposition home or self-care (01) ==
LOC: CT 08:54
PROVIDERS: ATTEND Urology
DX: R31.9 Hematuria, unspecified (principal); K57.30 Diverticulosis of large intestine without perforation or abscess without bleeding; R91.1 Solitary pulmonary nodule; I72.8 Aneurysm of other specified arteries
CPT/HCPCS: 74178; Q9967

== ENCOUNTER 2025-01-07 08:45 | Emergency (ER) | payer OTHER, MEDICAID ==
[2025-01-07] MEDS ORDERED: Acetaminophen 500 MG TAB ONE (09:23)
[2025-01-07 09:48] LABS: #Basophils 0.05 10x3/uL (0.0-0.2); #Eosinophils 0.28 10x3/uL (0.0-0.7); #Monocytes 0.39 10x3/uL (0.11-0.59); #Neutrophils 3.27 10x3/uL (1.40-6.50); %Basophils 0.9 % (0.0-1.0); %Eosinophils 5.1 % (0.0-10.0); %Lymphocytes 26.2 % (21.0-51.0); %Monocytes 7.2 % (0.0-10.0); Hematocrit 40.9 % (42.0-52.0); Hemoglobin 13.4 g/dL (14.0-18.0); Mean Corpuscular HGB CONC 32.8 g/dL (32.0-36.0); Mean Corpuscular Volume 94.7 fL (78.0-98.0); Mean Platelet Volume 10.8 fL (7.4-10.4); Platelet Count 155 10x3/uL (130-400); RBC Distribution Width 12.6 % (11.5-14.5); Red Blood Cell (RBC) Count 4.32 mill/uL (4.70-6.10); White Blood Cell (WBC) Count 5.45 10x3/uL (4.8-10.8)
[2025-01-07 10:32] LABS: ALT (SGPT) 17 U/L (Less than 45); AST (SGOT) 18 U/L (11-34); Albumin 3.6 g/dL (3.1-4.5); Alkaline Phosphatase 71 U/L (40-110); Anion Gap 11 mmol/L (10-20); BUN (Urea Nitrogen) 11 mg/dL (8.4-25.7); Bilirubin, Total 0.5 mg/dL (0.3-1.2); Calc. Creatinine Clearance 0 mL/min (70-130); Calcium 8.4 mg/dL (7.8-10.44); Carbon Dioxide 25 mmol/L (23-31); Chloride 105 mmol/L (98-107); Estimated GFR 99; Globulin 2.4 g/dL (2.4-3.5); Glucose 258 mg/dL (80-115); Potassium 3.7 mmol/L (3.5-5.1); Sodium 137 mmol/L (136-145)
[2025-01-07] MEDS ORDERED: Ketorolac Tromethamine 30 MG (1 mL) VIAL ONE (11:01)
== END 2025-01-07 11:10 | disposition home or self-care (01) ==
LOC: ERS 08:45
DX: M26.602 Left temporomandibular joint disorder, unspecified (principal); E11.9 Type 2 diabetes mellitus without complications; E78.5 Hyperlipidemia, unspecified; F17.200 Nicotine dependence, unspecified, uncomplicated; Z75.8 Other problems related to medical facilities and other health care
CPT/HCPCS: 36415; 70450; 80053; 85025; 86141; 96372; J1885